=== PATIENT | female | born 1955 | race Caucasian/White ===

== ENCOUNTER → 2016-05-08 | Outpatient (CLI) | payer BC ==
--- NOTE | 2016-05-08 08:51 | Diagnostic Imaging Report ---
EXAMINATION: Right lower extremity duplex venous ultrasound. TECHNIQUE: DVT protocol. Multiple sonographic images with color Doppler and waveform interrogation were performed of the right lower extremity veins with compression and augmentation maneuvers. INDICATION: Right leg pain and lump. FINDINGS: The right lower extremity veins from the groin to below the knee veins were examined with normal color-flow, compressibility and normal waveform demonstrated. The great saphenous vein is patent. There is a 6.2 x 1.2 x 2.4 cm from Turner's cyst with mild internal debris seen in the popliteal fossa. IMPRESSION: No evidence of DVT in the right lower extremity. Turner's cyst. Dictated by: Dictated on workstation # [id number]
== END ==
LOC: RAD 08:04
PROVIDERS: ATTEND Internal Medicine
DX: M71.21 Synovial cyst of popliteal space [Baker], right knee (principal); M79.661 Pain in right lower leg

== ENCOUNTER → 2016-11-14 | Outpatient (CLI) | payer BC ==
[2016-11-14 10:47] LABS: BASOPHILS # (AUTO) 0.1 10^3/uL (0.0-0.1); BASOPHILS % (AUTO) 1 % (0-10); EOSINOPHILS # (AUTO) 0.2 10^3/uL (0.0-0.3); EOSINOPHILS % (AUTO) 2 % (0-10); LYMPHOCYTES % (AUTO) 39 % (12-44); MEAN CORPUSCULAR HEMOGLOBIN 29 PG (25-34); MEAN CORPUSCULAR HGB CONC 34 G/DL (32-36); MEAN CORPUSCULAR VOLUME 87 FL (80-99); MEAN PLATELET VOLUME 10.7 FL (7.4-10.4); MONOCYTES # (AUTO) 0.8 X 10^3 (0.0-1.0); MONOCYTES % (AUTO) 8 % (0-12); NEUTROPHILS # (AUTO) 5.1 X 10^3 (1.8-7.8); NEUTROPHILS % (AUTO) 50 % (42-75); PLATELET COUNT 267 10^3/uL (130-400); RED BLOOD COUNT 5.41 10^6/uL (4.35-5.85); RED CELL DISTRIBUTION WIDTH 15.4 % (10.0-14.5); RETICULOCYTE % 0.76 % (0.50-2.40); WHITE BLOOD COUNT 10.3 10^3/uL (4.3-11.0)
[2016-11-14 10:53] LABS: PATH WILL NEED TO REVIEW SMEAR PATH TO REVIEW
[2016-11-14 11:36] LABS: EOSINOPHILS % (MANUAL) 2 %; LYMPHOCYTES % (MANUAL) 19 %; NEUTROPHILS % (MANUAL) 55 %; REACTIVE LYMPHOCYTES 17 %
== END ==
LOC: LAB 10:21
PROVIDERS: ATTEND Internal Medicine
DX: D72.829 Elevated white blood cell count, unspecified (principal)
CPT/HCPCS: 36415; 85007; 85027; 85045

== ENCOUNTER → 2017-03-18 | Outpatient (CLI) | payer MEDICARE, OTHER ==
--- NOTE | 2017-03-18 11:04 | Diagnostic Imaging Report ---
INDICATION: Routine screening. COMPARISON: Comparison is made with prior exam from 08/23/2004. FINDINGS: Mild parenchymal density is noted bilaterally, primarily in the retroareolar regions. The intramammary lymph node in the upper-outer right breast appears stable. No spiculated mass or malignant appearing microcalcifications are seen. The axillae are unremarkable. IMPRESSION: No mammographic features suspicious for malignancy are identified. ACR BI-RADS Category 2: Benign findings. Result letter will be mailed to the patient. Note: At least 10% of breast cancer is not imaged by mammography. Dictated by: Dictated on workstation # [id number]
== END ==
LOC: RAD 08:16
PROVIDERS: ATTEND Internal Medicine
DX: Z12.31 Encounter for screening mammogram for malignant neoplasm of breast (principal)
CPT/HCPCS: 77067

== ENCOUNTER → 2018-03-19 | Outpatient (CLI) | payer MEDICARE, OTHER ==
[~2018-03-19] MED LIST: ACHD5005 PO
--- NOTE | 2018-03-19 21:19 | Diagnostic Imaging Report ---
INDICATION: Routine screening. Comparison is made with prior exam from 03/18/2017. 2-D and 3-D bilateral screening mammography was performed with a Computer Aided Detection (CAD) system. FINDINGS: Scattered fibroglandular densities are identified bilaterally. The parenchymal pattern is stable. Intraparenchymal lymph node upper outer right breast is stable. No new mass or malignant-appearing microcalcifications are seen. Axillae are unremarkable. IMPRESSION: No mammographic features suspicious for malignancy are identified. ACR BI-RADS Category 2: Benign findings. Result letter will be mailed to the patient. Note: At least 10% of breast cancer is not imaged by mammography. Dictated by: Dictated on workstation # [id number]
== END ==
LOC: RAD 10:09
PROVIDERS: ATTEND Nurse Practitioner
DX: Z12.31 Encounter for screening mammogram for malignant neoplasm of breast (principal)
CPT/HCPCS: 77067

== ENCOUNTER → 2019-01-25 | Outpatient (CLI) | payer MEDICARE, OTHER ==
--- NOTE | 2019-01-25 14:40 | Diagnostic Imaging Report ---
INDICATION: Pain COMPARISON: None available TECHNIQUE: 3 radiographs of the left foot dated 01/25/2019. FINDINGS: Moderate hallux valgus metatarsus primus varus with bunion formation. This is associated with moderate degenerative changes of the 1st MTP joint. No acute fracture or dislocation. No destructive osseous process. Additional mild scattered degenerative changes. Moderate plantar calcaneal enthesophytes. No suspicious radiopaque foreign body. IMPRESSION: No acute osseous abnormality with mild scattered degenerative changes. Hallux valgus metatarsus primus varus with bunion formation. Moderate sized plantar calcaneal enthesophyte. Dictated by: Dictated on workstation # [id number]
== END ==
LOC: RAD 11:57
PROVIDERS: ATTEND Nurse Practitioner
DX: M20.12 Hallux valgus (acquired), left foot (principal); M21.612 Bunion of left foot; M77.32 Calcaneal spur, left foot
CPT/HCPCS: 73630

== ENCOUNTER → 2019-03-22 | Outpatient (CLI) | payer MEDICARE, OTHER ==
--- NOTE | 2019-03-22 10:17 | Diagnostic Imaging Report ---
INDICATION: Routine screening. Comparison is made with prior mammograms from 03/19/2018 and 03/18/2017. 2-D and 3-D bilateral screening mammography was performed CAD. Scattered fibroglandular densities are identified bilaterally. Interpectoral lymph node upper outer right breast is stable. No new mass or malignant-appearing microcalcifications are seen. Axillae are unremarkable. IMPRESSION: BI-RADS Category 2 No mammographic features suspicious for malignancy are microcalcifications ACR BI-RADS Category 2: Benign findings. Result letter will be mailed to the patient. Note: At least 10% of breast cancer is not imaged by mammography. Dictated by: Dictated on workstation # [id number]
== END ==
LOC: RAD 07:51
PROVIDERS: ATTEND Nurse Practitioner
DX: Z12.31 Encounter for screening mammogram for malignant neoplasm of breast (principal)
CPT/HCPCS: 77067

== ENCOUNTER 2019-04-23 10:29 | Outpatient (RCR) | payer MEDICARE, OTHER | END 2019-04-23 13:00 | disposition home or self-care (01) | PROVIDERS: ATTEND Nurse Practitioner Family | DX: M50.23 Other cervical disc displacement, cervicothoracic region (principal); M19.011 Primary osteoarthritis, right shoulder ==

== ENCOUNTER 2019-07-27 11:25 | Emergency (ER) | payer MEDICARE, OTHER ==
[~2019-07-27] VITALS: Ht 157 cm; Wt 74.0 kg
[2019-07-27] MEDS: NITROGLYCERIN 0.4 MG SL TABS BTL 25'S SL PRN ×2 (11:41→11:48)
[2019-07-27 11:45] LABS: BASOPHILS # (AUTO) 0.1 10^3/uL (0.0-0.1); BASOPHILS % (AUTO) 1 % (0-10); EOSINOPHILS # (AUTO) 0.3 10^3/uL (0.0-0.3); EOSINOPHILS % (AUTO) 3 % (0-10); HEMATOCRIT 46 % (35-52); HEMOGLOBIN 15.8 G/DL (11.5-16.0); LYMPHOCYTES # (AUTO) 4.9 X 10^3 (1.0-4.0); LYMPHOCYTES % (AUTO) 43 % (12-44); MEAN CORPUSCULAR HEMOGLOBIN 29 PG (25-34); MEAN CORPUSCULAR HGB CONC 35 G/DL (32-36); MEAN CORPUSCULAR VOLUME 83 FL (80-99); MEAN PLATELET VOLUME 10.3 FL (7.4-10.4); MONOCYTES # (AUTO) 1.1 X 10^3 (0.0-1.0); MONOCYTES % (AUTO) 10 % (0-12); NEUTROPHILS % (AUTO) 44 % (42-75); PLATELET COUNT 316 10^3/uL (130-400); RED CELL DISTRIBUTION WIDTH 14.6 % (10.0-14.5); WHITE BLOOD COUNT 11.4 10^3/uL (4.3-11.0)
[2019-07-27] MEDS ORDERED: ASPIRIN 81 MG CHEW (CHILDREN'S ASA) PO ONE (11:45)
[2019-07-27] MEDS ORDERED: OMEP20CA18 (11:51)
[2019-07-27] MEDS ORDERED: METO50TA7 (11:51)
[2019-07-27] MEDS ORDERED: NAPR-915 (11:51)
--- NOTE | 2019-07-27 11:56 | ED Chest Pain ---
General Chief Complaint: Chest Pain Stated Complaint: CHEST PAIN Nursing Triage Note: Arrived via amb to room 06. On and off chest pain x2 weeks. States at times the pain radiates into her neck. Nursing Sepsis Screen: No Definite Risk Source: patient Exam Limitations: no limitations History of Present Illness Date Seen by Provider: Jul 27, 2019 Time Seen by Provider: 11:25 Initial Comments Here with report of intermittent anterior chest pressure that starts in the upper chest and radiates up into the neck. Usually associated with activity and better with rest. Has worsened today. Onset today at 9:30 AM and has persisted but better now after resting. States it's at about 5 out of 10 with respect to pressure. Denies shortness of air currently but states she doesn't short of air sometimes with these. Denies sweating, nausea or dizziness. Denies recent illness. Has not had previous heart catheter. Timing/Duration: 1-3 hours, changing over time Severity/Quality: moderate, pressure Location: central Radiation: neck Activities at Onset: none Prior CP/Workup: echocardiography Modifying Factors: improves with rest ASA po STREET INSPECTOR: No NTG SL STREET INSPECTOR: No Associated Symptoms: No abdominal pain, No back pain, No diaphoresis, No fever/chills, No nausea/vomiting, No weakness Allergies and Home Medications Allergies Uncoded Allergies: PENICILLIN (Allergy, Unknown, 10/16/17) Patient Home Medication List Home Medication List Reviewed: Yes Review of Systems Review of Systems Constitutional: see HPI EENTM: No Symptoms Reported Respiratory: See HPI, SOA With Exertion; Denies Wheezing Cardiovascular: Chest Pain; Denies Edema, Denies Irregular Heart Rate Gastrointestinal: Denies Abdominal Pain, Denies Diarrhea, Denies Nausea, Denies Vomiting Genitourinary: No Symptoms Reported Musculoskeletal: no symptoms reported Skin: no symptoms reported Psychiatric/Neurological: No Symptoms Reported All Other Systems Reviewed Negative Unless Noted: Yes Past Lpzawki-Jgfeos-Qlarfy Hx Past Med/Social Hx: Reviewed Nursing Past Med/Soc Hx Patient Social History Alcohol Use: Denies Use Recreational Drug Use: No Smoking Status: Current Everyday Smoker Type Used: Cigarettes Recent Foreign Travel: No Contact w/Someone Who Travel: No Recent Infectious Disease Expo: No Recent Hopitalizations: No Past Medical History Surgeries: Yes Tubal Ligation Respiratory: No Tuberculosis Cardiac: Yes High Cholesterol, Hypertension 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 oz. 77.272669vw; 30.00 BMI Method:Stated General Appearance: No Apparent Distress, WD/WN HEENT: PERRL/EOMI, Pharynx Normal Neck: Non Tender, Supple Respiratory: Lungs Clear, Normal Breath Sounds Cardiovascular: No Murmur, Tachycardia Gastrointestinal: Non Tender, Soft Extremity: Normal Inspection, Normal Range of Motion, Non Tender, No Calf Tenderness; No Pedal Edema Neurologic/Psychiatric: Alert, Oriented x3, No Motor/Sensory Deficits Skin: Normal Color, Warm/Dry Progress/Results/Core Measures Results/Orders Lab Results Laboratory Tests Test 07/27/19 11:35 07/27/19 13:27 Range/Units White Blood Count 11.4 H 4.3-11.0 10^3/uL Red Blood Count 5.48 4.35-5.85 10^6/uL Hemoglobin 15.8 11.5-16.0 G/DL Hematocrit 46 35-52 % Mean Corpuscular Volume 83 80-99 FL Mean Corpuscular Hemoglobin 29 25-34 PG Mean Corpuscular Hemoglobin Concent 35 32-36 G/DL Red Cell Distribution Width 14.6 H 10.0-14.5 % Platelet Count 316 130-400 10^3/uL Mean Platelet Volume 10.3 7.4-10.4 FL Neutrophils (%) (Auto) 44 42-75 % Lymphocytes (%) (Auto) 43 12-44 % Monocytes (%) (Auto) 10 0-12 % Eosinophils (%) (Auto) 3 0-10 % Basophils (%) (Auto) 1 0-10 % Neutrophils # (Auto) 5.0 1.8-7.8 X 10^3 Lymphocytes # (Auto) 4.9 H 1.0-4.0 X 10^3 Monocytes # (Auto) 1.1 H 0.0-1.0 X 10^3 Eosinophils # (Auto) 0.3 0.0-0.3 10^3/uL Basophils # (Auto) 0.1 0.0-0.1 10^3/uL Prothrombin Time 13.6 12.2-14.7 SEC INR Comment 1.0 0.8-1.4 Activated Partial Thromboplast Time 28 24-35 SEC D-Dimer <= 0.27 0.00-0.49 UG/ML Sodium Level 135 135-145 MMOL/L Potassium Level 4.3 3.6-5.0 MMOL/L Chloride Level 103 98-107 MMOL/L Carbon Dioxide Level 19 L 21-32 MMOL/L Anion Gap 13 5-14 MMOL/L Blood Urea Nitrogen 20 H 7-18 MG/DL Creatinine 0.81 0.60-1.30 MG/DL Estimat Glomerular Filtration Rate > 60 BUN/Creatinine Ratio 25 Glucose Level 79 70-105 MG/DL Calcium Level 9.3 8.5-10.1 MG/DL Corrected Calcium 9.1 8.5-10.1 MG/DL Magnesium Level 2.1 1.6-2.4 MG/DL Total Bilirubin 0.5 0.1-1.0 MG/DL Aspartate Amino Transf (AST/SGOT) 23 5-34 U/L Alanine Aminotransferase (ALT/SGPT) 16 0-55 U/L Alkaline Phosphatase 56 40-136 U/L Myoglobin 62.6 10.0-92.0 NG/ML Troponin I < 0.028 < 0.028 <0.028 NG/ML Total Protein 7.3 6.4-8.2 GM/DL Albumin 4.3 3.2-4.5 GM/DL Lipase 42 8-78 U/L My Orders Orders - JAIMIE DOSS MD Cbc With Automated Diff (07/27/19 11:33) Magnesium (07/27/19 11:33) Chest 1 View, Ap/Pa Only (07/27/19 11:33) Ekg Tracing (07/27/19 11:33) Comprehensive Metabolic Panel (07/27/19 11:33) Myoglobin Serum (07/27/19 11:33) Protime With Inr (07/27/19 11:33) Partial Thromboplastin Time (07/27/19 11:33) O2 (07/27/19 11:33) Monitor-Rhythm Ecg Trace Only (07/27/19 11:33) Lipid Panel (07/28/19 06:00) Ed Iv/Invasive Line Start (07/27/19 11:33) Lipase (07/27/19 11:33) Troponin I (07/27/19 11:33) Nitroglycerin 0.4 Mg Btl 25's (Nitrostat (07/27/19 11:45) Aspirin Chewable Tablet (Baby Aspirin Ch (07/27/19 11:45) Fibrin Degradation Products (07/27/19 11:35) Troponin I (07/27/19 13:14) Medications Given in ED Current Medications Medications Dose Ordered Sig/Fabian Route Start Time Stop Time Status Last Admin Dose Admin Aspirin 324 mg ONCE ONCE PO 07/27/19 11:45 07/27/19 11:46 DC 07/27/19 11:41 324 MG Nitroglycerin 0.4 mg UD PRN SL 07/27/19 11:45 07/27/19 11:48 0.4 MG Vital Signs/I&O 07/27/19 11:25 Temp 37.0 Pulse 99 Resp 16 B/P (MAP) 145/69 (94) Pulse Ox 96 O2 Delivery Room Air Blood Pressure Mean: 94 Progress Progress Note : Progress Note Seen and evaluated. IV, labs, EKG and chest x-ray ordered. ASA 324 mg by mouth ordered. Nitroglycerin sublingual when necessary ordered. Monitor patient. 1400: I discussed the case with Dr. Gayle. Patient is chest pain-free and able to walk around without chest pain. We will repeat her troponin and if still negative then he can set her up as outpatient nuclear stress test on . I discussed this with the patient and she thinks that's an okay plan. Monitor patient. 1501: Repeat troponin negative and patient still without chest pain and no discomfort at all. Dr. Gayle will see the patient in the emergency department and signed order for outpatient stress test. Discharged home with return precautions. Patient verbalize understanding instructions and agreement with plan. Initial ECG Impression Date: Jul 27, 2019 Initial ECG Impression Time: 11:25 Initial ECG Rate: 96 Initial ECG Rhythm: Normal Sinus Comment Sinus with rate 100. Normal axis. No evidence of ST elevation FL. Inverted T waves in lead 3 and aVF. T wave inversion in lead 3 similar to previous of 10/16/17 but not noted in leads aVF. Interpreted by me. Diagnostic Imaging Diagonstic Imaging: Xray Plain Films/CT/US/NM/MRI: chest Comments [facility] [place], [place] NAME: SINCERE SAL[facility]ON [facility] REC#: [id number] PT STATUS: REG ER : 1955 PHYSICIAN: JAIMIE DOSS MD ADMIT DATE: 07/27/19/ER Draft Date of Exam:07/27/19 CHEST 1 VIEW, AP/PA ONLY Portable erect AP chest at 12:08. Indication: Chest pain. The heart size is within normal limits and stable compared to 10/16/2017. The lungs are clear. There is no sign of failure, pneumonia or pleural effusion. The mediastinum is not widened. The osseous structures are intact. Impression: There is no evidence for active disease. Dictated on workstation # [id number] Dict: 07/27/19 1213 Trans: 07/27/19 1215 CVB [id number] Interpreted by: CLAU THACKER MD Electronically signed by: Departure Impression Primary Impression: Chest pain Qualified Codes: R07.9 - Chest pain, unspecified Disposition: 01 HOME, SELF-CARE Condition: Stable Departure-Patient Inst. Decision time for Depature: 15:06 Referrals: Guzman GAYLE MD, JOHN D MD (PCP/Family) Primary Care Physician Patient Instructions: Chest Pain (DC) Add. Discharge Instructions: All discharge instructions reviewed with patient and/or family. Voiced understanding. Return for outpatient stress test on as instructed. Return for chest pain, breathing problems, weakness, shortness of breath, dizziness, sweating or other concerns as needed. Continue home medications as previously prescribed. Copy Copies To 1: Guzman GAYLE MD Copies To 2: DANIELLE ROSALES MD, TIMOTHY D MD Jul 27, 2019 11:56
--- NOTE | 2019-07-27 12:01 | NUR ---
DENIES PAIN AFTER 2ND NITRO.
--- OUTSIDE RECORDS SUMMARY | 2019-07-27 12:04 | XMS REPORT | Continuity of Care Document ---
Author Organization Unknown Address Unknown Phone Unavailable Allergies Active Description Code Type Severity Reaction Onset Reported/Identified Relationship to Patient Clinical Status Yes PENICILLIN PENICILLIN Unknown N/A 10/16/2017 Medications There is no data. 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] 05/09/2016 DANIELLE ROSALES MD Ot M79.6 61 PAIN IN RIGHT LOWER LEG 05/28/2016 DANIELLE ROSALES MD Ot 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] 05/28/2016 DANIELLE ROSALES MD Ot M79.6 61 PAIN IN RIGHT LOWER LEG 11/20/2016 DANIELLE ROSALES MD Ot D72.8 29 ELEVATED WHITE BLOOD CELL COUNT, UNSPECI 12/04/2016 DANIELLE ROSALES MD Ot D72.8 29 ELEVATED WHITE BLOOD CELL COUNT, UNSPECI 03/18/2017 DANIELLE ROSALES MD Ot Z12.3 1 ENCNTR SCREEN MAMMOGRAM FOR MALIGNANT NE 04/09/2017 DANIELLE ROSALES MD Ot Z12.3 1 ENCNTR SCREEN MAMMOGRAM FOR MALIGNANT NE 10/16/2017 DANIELLE ROSALES MD Ot Z12.3 1 ENCNTR SCREEN MAMMOGRAM FOR MALIGNANT NE 10/16/2017 JAIMIE DOSS MD Ot E78.00 PURE HYPERCHOLESTEROLEMIA, UNSPECIFIED 10/16/2017 JAIMIE DOSS MD Ot F17.200 NICOTINE DEPENDENCE, UNSPECIFIED, UNCOMP 10/16/2017 JAIMIE DOSS MD Ot I10 ESSENTIAL (PRIMARY) HYPERTENSION 10/16/2017 JAIMIE DOSS MD Ot K21.9 GASTRO-ESOPHAGEAL REFLUX DISEASE WITHOUT 10/16/2017 JAIMIE DOSS MD Ot M06.9 RHEUMATOID ARTHRITIS, UNSPECIFIED 10/16/2017 JAIMIE DOSS MD Ot R07.89 OTHER CHEST PAIN 10/16/2017 JAIMIE DOSS MD Ot S20.212A CONTUSION OF LEFT FRONT WALL OF THORAX, 10/16/2017 JAIMIE DOSS MD Ot W18.30XA FALL ON SAME LEVEL, UNSPECIFIED, INITIAL 10/16/2017 JAIMIE DOSS MD Ot Y92.[address] 10/16/2017 JAIMIE DOSS MD Ot Y93.01 ACTIVITY, WALKING, MARCHING AND HIKING 10/16/2017 JAIMIE DOSS MD Ot Z88.0 ALLERGY STATUS TO PENICILLIN 10/16/2017 JAIMIE DOSS MD Ot Z98.51 TUBAL LIGATION STATUS 10/20/2017 JAIMIE DOSS MD Ot E78.00 PURE HYPERCHOLESTEROLEMIA, UNSPECIFIED 10/20/2017 JAIMIE DOSS MD Ot F17.200 NICOTINE DEPENDENCE, UNSPECIFIED, UNCOMP 10/20/2017 JAIMIE DOSS MD Ot I10 ESSENTIAL (PRIMARY) HYPERTENSION 10/20/2017 JAIMIE DOSS MD Ot K21.9 GASTRO-ESOPHAGEAL REFLUX DISEASE WITHOUT 10/20/2017 JAIMIE DOSS MD Ot M06.9 RHEUMATOID ARTHRITIS, UNSPECIFIED 10/20/2017 JAIMIE DOSS MD Ot R07.89 OTHER CHEST PAIN 10/20/2017 JAIMIE DOSS MD Ot S20.212A CONTUSION OF LEFT FRONT WALL OF THORAX, 10/20/2017 JAIMIE DOSS MD Ot W18.30XA FALL ON SAME LEVEL, UNSPECIFIED, INITIAL 10/20/2017 JAIMIE DOSS MD Ot Y92.[address] 10/20/2017 JAIMIE DOSS MD Ot Y93.01 ACTIVITY, WALKING, MARCHING AND HIKING 10/20/2017 JAIMIE DOSS MD Ot Z88.0 ALLERGY STATUS TO PENICILLIN 10/20/2017 JAIMIE DOSS MD Ot Z98.51 TUBAL LIGATION STATUS 04/09/2018 MATEO SPAULDING ICU REGISTERED NURSE Ot Z12.31 ENCNTR SCREEN MAMMOGRAM FOR MALIGNANT NE 01/25/2019 DANIELLE ROSALES MD Ot Z12.3 1 ENCNTR SCREEN MAMMOGRAM FOR MALIGNANT NE 01/25/2019 MATEO SPAULDING R ICU REGISTERED NURSE Ot Z12.31 ENCNTR SCREEN MAMMOGRAM FOR MALIGNANT NE 01/27/2019 CHELLY MATEO R ICU REGISTERED NURSE Ot M20.12 HALLUX VALGUS (ACQUIRED), LEFT FOOT 01/27/2019 CHELLY, MATEO R ICU REGISTERED NURSE Ot M21.612 BUNION OF LEFT FOOT 01/27/2019 CHELLY, MATEO R ICU REGISTERED NURSE Ot M77.32 CALCANEAL SPUR, LEFT FOOT 02/03/2019 CHELLY, MATEO R ICU REGISTERED NURSE Ot M20.12 HALLUX VALGUS (ACQUIRED), LEFT FOOT 02/03/2019 CHELLY, MATEO R ICU REGISTERED NURSE Ot M21.612 BUNION OF LEFT FOOT 02/03/2019 CHELLY, MATEO R ICU REGISTERED NURSE Ot M77.32 CALCANEAL SPUR, LEFT FOOT 02/19/2019 CHELLY, MATEO R ICU REGISTERED NURSE Ot M20.12 HALLUX VALGUS (ACQUIRED), LEFT FOOT 02/19/2019 CHELLY, MATEO R ICU REGISTERED NURSE Ot M21.612 BUNION OF LEFT FOOT 02/19/2019 CHELLY, MATEO R ICU REGISTERED NURSE Ot M77.32 CALCANEAL SPUR, LEFT FOOT 03/23/2019 MATEO SPAULDING ICU REGISTERED NURSE Ot Z12.31 ENCNTR SCREEN MAMMOGRAM FOR MALIGNANT NE 04/20/2019 MAICOL TOURE ICU REGISTERED NURSE Ot M19.011 PRIMARY OSTEOARTHRITIS, RIGHT SHOULDER 04/20/2019 MAICOL TOURE ICU REGISTERED NURSE Ot M50.23 OTHER CERVICAL DISC DISPLACEMENT, CERVIC 04/20/2019 MATEO SPAULDING R ICU REGISTERED NURSE Ot Z12.31 ENCNTR SCREEN MAMMOGRAM FOR MALIGNANT NE Procedures There is no data. Results Test Result Range Blood CBC with ordered manual differenti al panel - 11/14/16 10:37 Blood leukocytes automated count (number/volume) 10.3 10*3/uL 4.3-11.0 Blood erythrocytes automated count (number/volume) 5.41 10*6/uL 4.35-5.85 Venous blood hemoglobin measurement (mass/volume) 15.7 g/dL 11.5-16.0 Blood hematocrit (volume fraction) 47 % 35-52 Automated erythrocyte mean corpuscular volume 87 [ foz_us] 80-99 Automated erythrocyte mean corpuscular h emoglobin (mass per erythrocyte) 29 pg 25-34 Automated erythrocyte mean corpuscular h emoglobin concentration measurement (mass/volume) 34 g/dL 32-36 Automated erythrocyte distribution width ratio 15. 4 % 10.0- 14.5 Automated blood platelet count (count/volume) 267 10*3/uL 130-400 Automated blood platelet mean volume measurement 10.7 [foz_us] 7.4-10.4 Automated blood neutrophils/100 leukocytes 50 % 42-75 Automated blood lymphocytes/100 leukocytes 39 % 12-44 Blood monocytes/100 leukocytes 7 % NRG Automated blood eosinophils/100 leukocytes 2 % 0-10 Automated blood basophils/100 leukocytes 1 % 0-10 Blood neutrophils automated count (number/volume) 5.1 10*3 1.8-7.8 Blood lymphocytes automated count (number/volume) 4.0 10*3 1.0-4.0 Blood monocytes automated count (number/volume) 0. 8 10*3 0.0-1.0 Automated eosinophil count 0.2 10*3/uL 0 .0-0.3 Automated blood basophil count (count/volume) 0.1 10*3/uL 0.0-0.1 Manual blood segmented neutrophils/100 leukocytes 55 % NRG Manual blood lymphocytes/100 leukocytes 19 % NRG Manual eosinophils/100 leukocytes in nose 2 % NRG Blood lymphocytes variant/100 leukocytes 17 % NRG Blood erythrocyte morphology finding identification NORMAL NRG Automated reticulocyte percentage - 10/26 03/12 10:37 Blood reticulocytes count (number/volume) 41 10*9/ L 24-90 Blood reticulocytes/100 erythrocytes 0.76 % 0.50-2.40 Complete blood count (CBC) with automate d white blood cell (WBC) differential - 07/27/19 11:35 Blood leukocytes automated count (number/volume) 11.4 10*3/uL 4.3-11.0 Blood erythrocytes automated count (number/volume) 5.48 10*6/uL 4.35-5.85 Venous blood hemoglobin measurement (mass/volume) 15.8 g/dL 11.5-16.0 Blood hematocrit (volume fraction) 46 % 35-52 Automated erythrocyte mean corpuscular volume 83 [ foz_us] 80-99 Automated erythrocyte mean corpuscular h emoglobin (mass per erythrocyte) 29 pg 25-34 Automated erythrocyte mean corpuscular h emoglobin concentration measurement (mass/volume) 35 g/dL 32-36 Automated erythrocyte distribution width ratio 14. 6 % 10.0- 14.5 Automated blood platelet count (count/volume) 316 10*3/uL 130-400 Automated blood platelet mean volume measurement 10.3 [foz_us] 7.4-10.4 Automated blood neutrophils/100 leukocytes 44 % 42-75 Automated blood lymphocytes/100 leukocytes 43 % 12-44 Blood monocytes/100 leukocytes 10 % 0-12 Automated blood eosinophils/100 leukocytes 3 % 0-10 Automated blood basophils/100 leukocytes 1 % 0-10 Blood neutrophils automated count (number/volume) 5.0 10*3 1.8-7.8 Blood lymphocytes automated count (number/volume) 4.9 10*3 1.0-4.0 Blood monocytes automated count (number/volume) 1. 1 10*3 0.0-1.0 Automated eosinophil count 0.3 10*3/uL 0 .0-0.3 Automated blood basophil count (count/volume) 0.1 10*3/uL 0.0-0.1 Encounters ACCT No. Visit Date/Time Discharge Status Pt. Type Provider Facility Loc./Unit Complaint [id number] 04/23/2019 10:29:00 13:00:00 DIS Outpatient MAICOL TOURE APRN [facility] REHAB RC ARTHROPLSTY R SHOULD ER; DDD C6-7 [id number] 03/22/2019 07:51:00 23:59:59 CLS Outpatient MATEO SPAULDING APRN [facility] RAD SCREENING [id number] 01/25/2019 11:57:00 23:59:59 CLS Outpatient MATEO SPAULDING APRN [facility] RAD LEFT FOOT PAIN [id number] 03/19/2018 10:09:00 019 23:59:59 CLS Outpatient MATEO SPAULDING APRN [facility] RAD SCREENING [id number] 10/16/2017 07:51:00 018 11:55:00 DIS Emergency JAIMIE DOSS MD [facility] ER CP [id number] 03/18/2017 08:16:00 018 23:59:59 CLS Outpatient DANIELLE ROSALES MD [facility] RAD SCREENING [id number] 11/14/2016 10:21:00 017 23:59:59 CLS Outpatient DANIELLE ROSALES MD [facility] LAB WHITE COUNT ELEVATED [id number] 05/08/2016 08:04:00 017 23:59:59 CLS Outpatient DANIELLE ROSALES MD [facility] RAD PAIN RT POSTERIOR KNEE [id number] 07/27/2019 11:46:00 Document Registration [id number] 12/15/2009 08:55:00 Document Registration [id number] 11/23/2009 17:36:00 Document Registration
--- OUTSIDE RECORDS SUMMARY | 2019-07-27 12:04 | XMS REPORT ---
Author Author [facility] [employer] [employer] Address [address] [address] Care Team Providers Care Research Dietitian Name Role Phone DANIELLE ROSALES Unavailable DANIELLE ROSALES MD Unavailable Unavailable MATEO SPAULDING APRN Unavailable Unavailable DANIELLE ROSALES MD Unavailable Unavailable JAIMIE DOSS MD Unavailable Unavailable MATEO SPAULDING APRN Unavailable Unavailable MESFIN ROJAS MAICOL [place] Unavailable Unavailable Unavailable Unavailable Unavailable Unavailable Allergies Normalized Allergy Reported Date of Reaction(s) Care Provider Facility Allergy Type classification allergen Allergy Onset Drug Allergy Penicillins penicillin 12-15-2009 - no information DANIELLE ROSALES , Not Available (22 sources.) (antibiotic) () Medications Medication Ingredient Drug Dose Dates Status Sig Sig Care Class(es) (Normalized) (Original) Provid er no acetaminoph Opioid 10-17-19 Complete take 1-2 Acetaminoph e Timoth information en / Agonist 18 d tablets by n/Hydrocodon y D (1 source.) HYDROcodone mouth every e Bitart Stebbi six hours as (Hydrocodone ns (no needed for /Acetaminoph phone) pain en 5/325MG Tablet) 1 Tab Tab 1-2 Each ORAL Every 6 Hours as needed for Pain-Moderat e 18 Tab 10/16/17 Problems Active Problems Problem Normalized Date Last Normalized Normalized Provider Fa cility Classification Problem(s) Recorded Problem Problem Sta tus Duration External cause Activity, Episodic Active JA[facility]IE [facility] Via codes: walking, MD Marlene DOSS Unspecified (1 and Hospital - source.) [facility] () Allergic Allergy status Episodic Active JAIMIE [facility] Via reactions (3 to penicillin MD ROMARIO Marlene sources.) [facility] () Acquired foot Bunion of left Episodic Active MATEO SPAULDING [facility] Via deformities (3 foot Marlene sources.) [facility] (76266) Other Calcaneal Episodic Active MATEO CHELLY [facility] Via connective spur, left Marlene tissue disease foot Hospital - (3 sources.) [place] () Superficial Contusion of Episodic Active JAIMIE [facility] Via injury; left front MD Marlene DOSS contusion (3 wall of Hospital - sources.) thorax, [place] initial () encounter Diseases of Elevated white Chronic Active no name no in formation white blood blood cell cells (2 count, sources.) unspecified Other Encounter for Episodic Active DANIELLE ROSALES [facility] Via screening for screening MD Rosario suspected mammogram for Hospital - conditions malignant [place] (not mental neoplasm of (94575) disorders or breast infectious disease) (12 sources.) Essential Essential Chronic Active JAIMIE [facility] Via hypertension (primary) MD Marlene DOSS (3 sources.) hypertension [facility] (08302) External cause Fall on same Episodic Active JAIMIE [facility] Via codes: Fall (1 level, MD Marlene DOSS source.) unspecified, Hospital - initial [place] encounter () Esophageal Gastro-esophag Chronic Active JAIMIE [facility] Vi a disorders (3 eal reflux MD Marlene DOSS sources.) disease Hospital - without [place] esophagitis (39428) Acquired foot Hallux valgus Chronic Active MATEO CHELLY [facility] Via deformities (3 (acquired), Marlene sources.) left foot Hospital - [place] ([address]654) Substance-rela Nicotine Chronic Active JAIMIE [facility] Via aretha disorders dependence, MD Marlene DOSS (3 sources.) unspecified, Hospital - uncomplicated [place] (90646) Spondylosis; Other cervical Chronic Active MAICOL MESFIN , [facility] Via intervertebral disc CRYSTAL Rosario disc displacement, Hospital - disorders; cervicothoraci [place] other back c region () problems (17 sources.) Nonspecific Other chest Episodic Active JAIMIE [facility] Via chest pain (4 pain MD Marlene DOSS sources.) Hospital - [place] (10552) Osteoarthritis Primary Chronic Active MAICOL MESFIN , [facility] Via (17 sources.) osteoarthritis CRYSTAL Rosario , right Hospital - shoulder [place] () Disorders of Pure Chronic Active JAIMIE [facility] Via lipid hypercholester MD Marlene DOSS metabolism (1 olemia, Hospital - source.) unspecified [place] () Rheumatoid Rheumatoid Chronic Active JAIMIE [facility] Via arthritis and arthritis, MD Marlene DOSS related unspecified Hospital - disease (3 [place] sources.) (23991) Contraceptive Tubal ligation Episodic Active JAIMIE [facility] Via and status MD Marlene DOSS procreative Hospital - management (3 [place] sources.) (58898) External cause Unspecified Episodic Active JAIMIE [facility] V ia codes: Place street and MD Marlene DOSS of occurrence highway as the Hospital - (1 source.) place of [place] occurrence of (00158) the external cause Past or Other Problems Problem Normalized Date Last Normalized Normalized Provider Fa cility Classification Problem(s) Recorded Problem Problem Sta tus Duration External Activity, no information no information no name No t Available Injury - walking, (29545) Unspecified (2 marching and sources.) hiking External Fall on same no information no information no name Not Available Injury - Fall level, (90761) (2 sources.) unspecified, initial encounter Other Pain in right Episodic Completed DANIELLE ROSALES , Not Available connective lower leg (67328) tissue disease (3 sources.) Unclassified Pure no information no information no name Not Available (2 sources.) hypercholester (63841) olemia, unspecified Other Synovial cyst Episodic Completed DANIELLE ROSALES , Not Available connective of popliteal (19985) tissue disease space [[place]], (3 sources.) right knee External Unspecified no information no information no name Not Available Injury - Place street and (89710) of occurrence highway as the (2 sources.) place of occurrence of the external cause Procedures Procedure Normalized Procedure Procedure Result Performer Facility Date 10-16-2017 Computerized axial no information JAIMIE REY S Via [facility] tomography of thorax [place] (53726) with contrast 10-16-2017 Electrocardiographic no information JAIMIE FUENTES INS Via [facility] procedure [place] (57413) 10-16-2017 Plain chest X-ray no information JAIMIE DOSS Via [facility] ([address]) Immunizations Normalized Immunization Date Notes Care Provider Facili ty Immunization vaccine no information DANIELLE ROSALES [id number] [address] [facility] Translations: [ [place] ([address]) vaccine] Results Test Name Value Interpretation Reference Range Date Time Fa cility (Normalized) (Normalized) (Medline Reference) venous blood hemoglobin measurement (mass/volume) on 2017-10-16 Hemoglobin mass 15.5 g/dL (no code) 12.1 - 17.2 g/dL Via [facility] (d) [facility] (81176) serum or plasma urea nitrogen/creatin ine mass ratio on 2017-10-16 Urea 20 mg/mg (no code) 6 - 22 mg/mg Via [facility] nitrogen/Creatin Hospital ine mass ratio [place] (67898) serum or plasma urea nitrogen measurement (mass/volume) on 2017-10-16 Urea nitrogen 16 mg/dL (no code) 7 - 20 mg/dL Via [facility] (32801) serum or plasma troponin i.cardiac measurement (mass/volume) on 2017-10-16 Troponin no information (no code) [facility] () Troponin no information (no code) [facility] (33628) serum or plasma total bilirubin measurement (mass/volume) on 2017-10-16 Bilirubin mass 0.4 mg/dL (no code) 0.1 - 1.2 mg/dL Via [facility] (46200) serum or plasma sodium measurement (moles/volume) on 2017-10-16 Sodium molar 141 mmol/L (no code) 135 - 145 mmol/L Via [facility] (99052) serum or plasma protein measurement (mass/volume) on 2017-10-16 Protein mass 7.0 g/dL (no code) 6.4 - 8.3 g/dL Via [facility] (79059) serum or plasma potassium measurement (moles/volume) on 2017-10-16 Potassium molar 4.3 mmol/L (no code) 3.7 - 5.2 mmol/L Via [facility] (22250) serum or plasma glucose measurement (mass/volume) on 2017-10-16 Glucose mass 117 mg/dL (H) 60 - 125 mg/dL Via [facility] (35604) serum or plasma creatinine measurement with calculation of estimated glomerular filtration rate on 2017-10-16 GFR/1.73 sq M no information (no code) Via [facility] non[facility] vol rate/area (25439) (S/P/Bld) serum or plasma creatinine measurement (mass/volume) on 2017-10-16 Creatinine mass 0.80 mg/dL (no code) Via [facility] (98901) serum or plasma chloride measurement (moles/volume) on 2017-10-16 Chloride molar 108 mmol/L (H) 95 - 106 mmol/L Via [facility] (96953) serum or plasma calcium measurement (mass/volume) on 2017-10-16 Calcium mass 9.3 mg/dL (no code) 8.5 - 10.2 mg/dL Via [facility] (43471) serum or plasma aspartate aminotransferase measurement (enzymatic activity/volume) on 2017-10-16 AST enzyme 16 U/L (no code) 10 - 34 U/L Via [facility] (60635) serum or plasma anion gap determination (moles/volume) on 2017-10-16 Anion gap 3 9 mmol/L (no code) 3 - 11 mmol/L Via [facility] (71772) serum or plasma alkaline phosphatase measurement (enzymatic activity/volume) on 2017-10-16 ALP enzyme 68 U/L (no code) 44 - 147 U/L Via [facility] (93953) serum or plasma albumin measurement (mass/volume) on 2017-10-16 Albumin mass 4.2 g/dL (no code) 3.4 - 5.4 g/dL Via [facility] (33674) serum or plasma alanine aminotransferase measurement (enzymatic activity/volume) on 2017-10-16 ALT enzyme 16 U/L (no code) 4 - 40 U/L Via [facility] (29064) prothrombin time (pt) in platelet poor plasma by coagulation assay on 2017-10-16 Prothrombin time 13.1 s (no code) 9.4 - 12.5 s Via [facility] (PT) [facility] [place] (03982) myoglobin, serum on 2017-10-16 Myoglobin mass 34.3 ng/mL (no code) Via [facility] (16804) magnesium on 2017-10-16 Magnesium mass 2.3 mg/dL (no code) 1.7 - 2.2 mg/dL Via [facility] (87278) lipase on 2017-10-16 Lipase enzyme 47 U/L (no code) 10 - 73 U/L Via [facility] act/vol [facility] (66831) inr in platelet poor plasma or blood by coagulation assay on 2017-10-16 INR Coag RelTime 1.0 (no code) Via [facility] (Platelet poor Hospital plasma or blood) [place] (32411) carbon dioxide on 2017-10-16 CO2 molar conc 24 mmol/L (no code) 23 - 29 mmol/L Via [facility] (19354) calcium measurement corrected for albumin on 2017-10-16 Calcium mass 9.1 mg/dL (no code) 8.5 - 10.2 mg/dL Via [facility] conc [facility] (79775) blood neutrophils automated count (number/volume) on 2017-10-16 Neutrophils Auto 6.7 10*3/uL (no code) 1.7 - 7 10*3/uL Via [facility] #/vol (Bld) [facility] (51012) blood monocytes/100 leukocytes on 2017-10-16 Monocytes/100 10 % (no code) 2 - 8 % Via [facility] WBC Auto (Bld) [facility] (18309) blood monocytes automated count (number/volume) on 2017-10-16 Monocytes Auto 1.2 10*3/uL (H) 0.3 - 0.9 Via [facility] #/vol (Bld) 10*3/uL [facility] (56534) blood lymphocytes automated count (number/volume) on 2017-10-16 Lymphocytes Auto 3.9 10*3/uL (no code) 0.9 - 2.9 Via [facility] james #/vol (Bld) 10*3/uL [facility] (95676) blood leukocytes automated count (number/volume) on 2017-10-16 WBC Auto #/vol 12.2 10*3/uL (H) 3.5 - 10.5 Via [facility] i (Bld) 10*3/uL [facility] (29742) blood hematocrit (volume fraction) on 2017-10-16 Hematocrit Auto 45 % (no code) 36.1 - 50.3 % Via [facility] ([facility]) [place] (62409) blood erythrocytes automated count (number/volume) on 2017-10-16 RBC Auto #/vol 5.19 10*6/uL (no code) 4.2 - 6.1 Via Manohar i (Bld) 10*6/uL [facility] (74888) automated erythrocyte mean corpuscular volume on 2017-10-16 MCV Auto Entitic 87 fL (no code) 80 - 100 fL Via Chri sti volume (RBC) [facility] (04901) automated erythrocyte mean corpuscular hemoglobin concentration measurement (mass/volume) on 2017-10-16 MCHC Auto mass 35 g/dL (no code) 32 - 36 g/dL Via Juan ti conc (RBC) [facility] (25302) automated erythrocyte mean corpuscular hemoglobin (mass per erythrocyte) on 2017-10-16 MCH Auto Entitic 30 pg (no code) 27 - 31 pg Via Juan ti mass (RBC) [facility] (69435) automated erythrocyte distribution width ratio on 2017-10-16 Erythrocyte 15.8 % (H) 11.6 - 14.6 % Via Marlene distribution Hospital width Auto Ratio [place] (RBC) (53916) automated eosinophil count on 2017-10-16 Eosinophils Auto 0.3 10*3/uL (no code) 0.05 - 0.5 Via Juan ti #/vol (Bld) 10*3/uL [facility] (27035) automated blood platelet mean volume measurement on 2017-10-16 Platelet mean 10.7 fL (H) 7.2 - 11.7 fL Via Juan ti volume Auto Hospital Entitic volume [place] (Bld) (06299) automated blood platelet count (count/volume) on 2017-10-16 Platelets Auto 305 10*3/uL (no code) 150 - 450 Via Marlene #/vol (Bld) 10*3/uL [facility] (13268) automated blood neutrophils/100 leukocytes on 2017-10-16 Neutrophils/100 55 % (no code) 40 - 60 % Via Manohar i WBC Auto (Bld) [facility] (20004) automated blood lymphocytes/100 leukocytes on 2017-10-16 Lymphocytes/100 32 % (no code) 20 - 40 % Via Manohar i WBC Auto (Bld) [facility] (13232) automated blood eosinophils/100 leukocytes on 2017-10-16 Eosinophils/100 3 % (no code) 1 - 4 % Via Manohar i WBC Auto (Bld) [facility] (18215) automated blood basophils/100 leukocytes on 2017-10-16 Basophils/100 0 % (no code) 0.5 - 1 % Via [facility] WBC Auto ([facility]) [facility] (02257) automated blood basophil count (count/volume) on 2017-10-16 Basophils Auto 0.1 10*3/uL (no code) 0 - 0.3 10*3/uL Via Ch risti #/vol ([facility]) [facility] (91990) activated partial thromboplastin time (aptt) in platelet poor plasma bycoagulation assay on 2017-10-16 aPTT Coag time 28 s (no code) 25 - 35 s Via [facility] ([facility]) [facility] (26986) Vital Signs The data below is from unstructured sources Vital Response Date/Time Temperature (Fahrenheit) 97.8 degree s F (97.6 - 99.5) 10/16/2017 7:50am Temperature (Calculated Celsius) 36. 83645 degrees C (36.4 - 37.5) 10/16/2017 7:50am Temperature Source Tympanic 10/16/2017 7:50am Pulse Rate (adult) 85 bpm (60 - 90) 10/16/2017 7:50am O2 Sat by Pulse Oximetry 97 % (88 - 100) 10/16/2017 7:50am Blood Pressure 156/81 mm Hg 10/16/2017 7:50am Blood Pressure Mean 106 mm Hg (65 - 110) 10/16/2017 7:50am Pain Numeric Pain Scale 4 11:35am Height (Feet) 5 feet 7:50am Height (Inches) 2.00 inches 10/16/2017 7:50am Height (Calculated Centimeters) 157. 286825 cm 10/16/2017 7:50am Height Method Stated 7:50am Weight (Pounds) 170 pounds 10/16/2017 7:50am Weight (Calculated Grams) 79263.70 gm 10/16/2017 7:50am Weight (Calculated Kilograms) 77.110 704 kilograms 10/16/2017 7:50am Weight Method Stated 7:50am Capillary Refill Capillary Refill Less Than 3 Seconds 10/16/2017 7:50am Height 5 ft 2 in 018 7:50am Weight 170 lb 10/16/2017 7:50am Body Mass Index 31.1 kg/m^2 10/16/2017 7:50am Interventions No Information Plan of Treatment The data below is from unstructured sources Discharge Date 10/16/17 11:55am Disposition 01 HOME, SELF-CARE Condition at Discharge Improved Instructions/Education Provided RIB CONTUSION Chest Pain (DC) Prescriptions See Medication Section Referrals SAMIRA CARMICHAEL MD FACP FACC CC DS Address: [facility] Ady SLATER, [facility] [place] [address] [place] [address] Guzman JONAS MD Address: [address] [place] [address] NOEMI TAVARES MD Address: [address] [place] [phone] DANIELLE ROSALES MD Order Date: Primary Care Physician Address: [address] [place] [address] Note: DANIELLE ROSALES MD Order Date: Primary Care Physician Address: [address] [place] [address] Note: Additional Instructions/Education Al l discharge instructions reviewed with patient and/or family. Voiced understanding. Use incentive spirometer several times daily and up to several times an hour while awake. This will help prevent pneumonia. Take medications as prescribed. If you're not taking the prescribed pain medicine, you may take Tylenol/acetaminophen 1 or 2 extra strength tablets every 8 hours as needed for pain. Do not take with the prescribed pain medicine as they both have acetaminophen in them. Follow-up with your Dr. in a few days for recheck. You should set up cardiology follow-up. You can do this through your doctor or called directly to one of the operations clerk listed. Return for worse pain, fever, vomiting, weakness, breathing problems, sweating or other concerns as needed. Goals No Information Social History Normalized Code Original Code Date Value no information no information no information Smokes tobacco daily (finding) Functional Status The data below is from unstructured sourcesNo functional status information available. Mental Status No Information Encounters Encounter Normalized Encounter Encounter Diagnosis Care Provi carmencita Organization Date Type 10-16-2017 Emergency department no information JAIMIE FUENTES INS no organization name - patient visit Work Phone: 10-16-2017 10-16-2017 Emergency department no information no name no organization name - patient visit 10-16-2017 10-16-2017 Patient encounter no information no name no or ganization name 03-18-2017 Patient encounter no information no name no or ganization name NEGATED Patient encounter no information no name no or ganization name 11-14-2016 04-23-2019 Patient encounter no information MAICOL E MESFIN [employer]PUTER SYSTEM[employer] ARCHITECT (no [facility] Via [facility] - procedure phone) [facility] 04-23-2019 (no phone) 04-21-2019 Patient encounter no information MAICOL E MESFIN COMPUTER SYSTEMS ARCHITECT (no [facility] Via [facility] procedure phone) [facility] (no phone) 04-19-2019 Patient encounter no information MAICOL E MESFIN COMPUTER SYSTEMS ARCHITECT (no [facility] Via [facility] procedure phone) [facility] (no phone) 04-16-2019 Patient encounter no information MAICOL E MESFIN COMPUTER SYSTEMS ARCHITECT (no [facility] Via [facility] procedure phone) [facility] (no phone) 04-14-2019 Patient encounter no information MAICOL E MESFIN COMPUTER SYSTEMS ARCHITECT (no [facility] Via [place] procedure phone) [facility] (no phone) 04-08-2019 Patient encounter no information MAICOL E MESFIN COMPUTER SYSTEMS ARCHITECT (no [facility] Via [place] procedure phone) [facility] (no phone) 04-06-2019 Patient encounter no information MAICOL E MESFIN COMPUTER SYSTEMS ARCHITECT (no [facility] Via [facility] procedure phone) [facility] (no phone) 04-02-2019 Patient encounter no information MAICOL E MESFIN COMPUTER SYSTEMS ARCHITECT (no [facility] Via [facility] procedure phone) [facility] (no phone) 03-31-2019 Patient encounter no information no name no or ganization name procedure 03-29-2019 Patient encounter no information no name no or ganization name procedure 03-26-2019 Patient encounter no information no name no or ganization name procedure 03-25-2019 Patient encounter no information no name no or ganization name procedure 03-23-2019 Patient encounter no information no name no or ganization name procedure 03-22-2019 Patient encounter no information MATEO ANGELES RN [facility] procedure (no phone) [facility] (no phone) 03-19-2019 Patient encounter no information no name no or ganization name procedure 03-15-2019 Patient encounter no information no name no or ganization name procedure 03-12-2019 Patient encounter no information no name no or ganization name procedure 03-10-2019 Patient encounter no information no name no or ganization name procedure 01-25-2019 Patient encounter no information no name no or ganization name procedure 03-19-2018 Patient encounter no information no name no or ganization name procedure 03-19-2018 Patient encounter no information no name no or ganization name procedure 03-18-2017 Patient encounter no information no name no or ganization name procedure 05-08-2016 Patient encounter no information no name no or ganization name procedure Medical Equipment No Information Payers Normalized Payer Value Private Health Insurance [id number]) Medicare [id number]) Advance Directives Directive Response Recor ded Date/Time Advance Directives No 7:50am Resuscitation Status Full Code 10/16/17 7:50am Discharge Instructions No hospital discharge instruction information available. Additional Source Comments This clinical document has been generated using [employer] software that has been certified by the Office of the National Coordinator for Health Information Technology (ONC 15.99.04.3023.Diam.31.00.0.908583) and the National Committee for Ux Interaction Designer (NCQA, as an eMeasure certified technology). FOR RECORDS PERTAINING TO PATIENTS WHO ARE OR HAVE BEEN ENROLLED IN A CHEMICAL D EPENDENCY/SUBSTANCE ABUSE PROGRAM, SOME INFORMATION MAY BE OMITTED. This clinica l summary was aggregated from multiple sources. Caution should be exercised in using it in the provision of clinical care. This summary normalizes information from multiple sources, and as a consequence, information in this document may ma terially change the coding, format and clinical context of patient data. In beulah tion, data may be omitted in some cases. CLINICAL DECISIONS SHOULD BE BASED ON T HE PRIMARY CLINICAL RECORDS. [employer] provides no warranty or guara ntee of the accuracy or completeness of information in this document.The followi ng information is based on time limited clinical information
--- NOTE | 2019-07-27 12:15 | Diagnostic Imaging Report ---
Portable erect AP chest at 12:08. Indication: Chest pain. The heart size is within normal limits and stable compared to 10/16/2017. The lungs are clear. There is no sign of failure, pneumonia or pleural effusion. The mediastinum is not widened. The osseous structures are intact. Impression: There is no evidence for active disease. Dictated by: Dictated on workstation # [id number]
[2019-07-27 12:21] LABS: FIBRIN DEGRADATION PRODUCTS <= 0.27 UG/ML (0.00-0.49); PARTIAL THROMBOPLASTIN TIME 28 SEC (24-35); PROTHROMBIN TIME PATIENT 13.6 SEC (12.2-14.7)
[2019-07-27 12:39] LABS: ALBUMIN 4.3 GM/DL (3.2-4.5); CHLORIDE 103 MMOL/L (98-107); POTASSIUM 4.3 MMOL/L (3.6-5.0); SODIUM 135 MMOL/L (135-145)
[2019-07-27 12:40] LABS: CALCIUM 9.3 MG/DL (8.5-10.1)
[2019-07-27 12:41] LABS: GLUCOSE 79 MG/DL (70-105)
[2019-07-27 12:42] LABS: TOTAL PROTEIN 7.3 GM/DL (6.4-8.2)
[2019-07-27 12:43] LABS: BILIRUBIN,TOTAL 0.5 MG/DL (0.1-1.0); CARBON DIOXIDE 19 MMOL/L (21-32)
[2019-07-27 12:45] LABS: ALKALINE PHOSPHATASE 56 U/L (40-136); CREATININE SERUM 0.81 MG/DL (0.60-1.30); GFR ESTIMATED > 60
[2019-07-27 12:46] LABS: BUN/CREATININE RATIO 25
[2019-07-27 12:48] LABS: ALANINE AMINOTRANSFERASE 16 U/L (0-55); MAGNESIUM 2.1 MG/DL (1.6-2.4)
[2019-07-27 12:49] LABS: LIPASE 42 U/L (8-78)
--- NOTE | 2019-07-27 12:50 | NUR ---
RESTING IN BED ET DENIES NEEDS AT THIS TIME.
--- NOTE | 2019-07-27 13:10 | NUR ---
IN TALKING TO THE PT AT THIS TIME.
--- NOTE | 2019-07-27 13:43 | NUR ---
PT REPORTS NO CHEST PAIN AFTER WALKING
--- NOTE | 2019-07-27 15:58 | NUR ---
DR STEPHENSON HERE TO SEE PT.
[2019-07-27 16:02] VITALS: BP 111/59
--- NOTE | 2019-07-27 16:08 | Consultation-Cardiology ---
HPI-Cardiology Cardiology Consultation: Date of Consultation 07/27/19 Date of Admission Attending Physician Admitting Physician Milton Blount MD Consulting Physician Guzman GAYLE MD HPI: Time Seen by a Provider: 16:08 Chief Complaint: chest pain This is a 64-year-old lady who presents with episode of chest pain in the upper chest radiating to the neck. Worse with exertion, better with rest. Moderate intensity, 5/10. Qualities tightness. Occasional shortness of breath. No other complaints. She is an active smoker with family history of CAD. Review of Systems-Cardiology Review of Systems Constitutional: As described under HPI; No As described under HPI, No no symptoms reported, No chills, No fever, No lightheadedness Eyes: No As described under HPI, No no symptoms reported, No blindness, No blurred vision, No contact lenses, No drainage, No decreased acuity, No foreign body sensation, No pain, No vision change Ears/Nose/Throat: No As described under HPI, No no symptoms reported, No chronic hearing loss, No ear discharge, No ear pain, No nasal drainage, No ulcerations Respiratory: No no symptoms reported; As described under HPI; No As described under HPI, No cough, No orthopnea, No shortness of breath, No SOB with excertion Cardiovascular: No no symptoms reported; As described under HPI; No As described under HPI; chest pain; No edema, No irregular heart rate, No lightheadedness, No palpitations Gastrointestinal: No no symptoms reported, No As described under HPI, No abdomen distended, No abdominal pain, No blood streaked bowels, No constipation, No diarrhea, No nausea, No vomiting, No stool coloration changes Genitourinary: No As described under HPI, No burning, No dysuria, No discharge, No frequency, No flank pain, No hematuria, No urgency : Yes : No Skin: No rash, No skin related problems, No ulcerations Psychiatric/Neurological: No anxiety, No depression, No seizure, No focal weakness, No syncope Hematologic: No bleeding abnormalities All Other Systems Reviewed Negative Unless Noted: Yes WIV-Kguohg-Vezglv Hx Patient Social History Alcohol Use: Denies Use Recreational Drug Use: No Smoking Status: Current Everyday Smoker Type Used: Cigarettes Recent Foreign Travel: No Recent Infectious Disease Expo: No Past Medical History PMH As described under Assessment. Allergies and Home Medications Allergies Uncoded Allergies: PENICILLIN (Allergy, Unknown, 10/16/17) Patient Home Medication List Home Medication List Reviewed: Yes Physical Exam-Cardiology Physical Exam Vital Signs/I&O Capillary Refill : Less Than 3 Seconds Constitutional: appears stated age, AAO x 3; No apparent distress; well- developed, well-nourished HEENT: PERRL; No discharge; hearing is well preserved, oral hygience is good; No ulceration, No xanthelasmas are seen Neck: No carotid bruit; carotid pulses are 2 + bilaterally Respiratory: chest is bilaterally symmetric, lungs clear to auscultation; No wheezing, No pleural rub Cardiovascular: regular rate-rhythm, S1 and S2; No diastolic murmur, No systolic murmur Gastrointestinal: soft, audible bowel sounds; No spleenomegaly Rectal: deferred Extremities: normal range of motion, non-tender, normal inspection; No clubbing, No cyanosis; no lower extremity edema bilateral; No significant edema Neurologic/Psychiatric: no motor/sensory deficits, alert, normal mood/affect, oriented x 3, power is 5/5 both on sides Skin: normal color, warm/dry; No rash, No ulcerations Data Review Labs Laboratory Tests 07/27/19 11:35: White Blood Count 11.4H, Red Blood Count 5.48, Hemoglobin 15.8, Hematocrit 46, Mean Corpuscular Volume 83, Mean Corpuscular Hemoglobin 29, Mean Corpuscular Hemoglobin Concent 35, Red Cell Distribution Width 14.6H, Platelet Count 316, Mean Platelet Volume 10.3, Neutrophils (%) (Auto) 44, Lymphocytes (%) (Auto) 43, Monocytes (%) (Auto) 10, Eosinophils (%) (Auto) 3, Basophils (%) (Auto) 1, Neutrophils # (Auto) 5.0, Lymphocytes # (Auto) 4.9H, Monocytes # (Auto) 1.1H, Eosinophils # (Auto) 0.3, Basophils # (Auto) 0.1, Prothrombin Time 13.6, INR Comment 1.0, Activated Partial Thromboplast Time 28, D-Dimer <= 0.27, Sodium Level 135, Potassium Level 4.3, Chloride Level 103, Carbon Dioxide Level 19L, Anion Gap 13, Blood Urea Nitrogen 20H, Creatinine 0.81, Estimat Glomerular Filtration Rate > 60, BUN/Creatinine Ratio 25, Glucose Level 79, Calcium Level 9.3, Corrected Calcium 9.1, Magnesium Level 2.1, Total Bilirubin 0.5, Aspartate Amino Transf (AST/SGOT) 23, Alanine Aminotransferase (ALT/SGPT) 16, Alkaline Phosphatase 56, Myoglobin 62.6, Troponin I < 0.028, Total Protein 7.3, Albumin 4.3, Lipase 42 07/27/19 13:27: Troponin I < 0.028 ECG Impression ECG Initial ECG Rhythm: Normal Sinus Comment possible q waves in the inferior leads A/P-Cardiology Assessment/Admission Diagnosis Prolonged chest pain, Hypertension, Active smoking, Q waves on EKG. Plan Prolonged chest pain, 2 sets of troponin negative. EKG does not show any acute ST-T wave abnormalities does show Q waves. Continue aspirin. Nuclear stress test and echocardiogram is recommended. Hypertension, stable. Continue outpatient medical therapy. Active smoking, smoking cessation was strongly recommended. Q waves on EKG. I will recommend an echocardiogram to evaluate for regional wall motion abnormalities as well as nuclear stress testing. Discussed at length with Dr. Olsen as well as the patient. Thank you for your consultation. Please call me if you have any questions. Stew Gayle MD, FACP, FACC, FSCAI, FHRS, CCDS Interventional Cardiology Cardiac Electrophysiology Vascular Medicine and Endovascular Interventions Clinical Quality Measures AMI/AHF: ASA po Prior to arrival: Guzman Wadsworth MD Jul 27, 2019 16:08
== END 2019-07-27 16:02 | disposition home or self-care (01) ==
LOC: EDUNIT# 11:25 → ER 11:26
DX: R07.89 Other chest pain (principal); F17.210 Nicotine dependence, cigarettes, uncomplicated; Z88.0 Allergy status to penicillin
CPT/HCPCS: 36415; 71045; 80053; 83690; 83735; 83874; 84484; 85025; 85379; 85610; 85730; 93005; 93041

== ENCOUNTER → 2019-07-29 | Outpatient (CLI) | payer MEDICARE, OTHER ==
[~2019-07-29] VITALS: Ht 157 cm; Wt 75.0 kg
[~2019-07-29] MED LIST changes: +CATHETER FLUSH 10 ML SYR IV PRN; +METO50TA7; +NAPR-915; +OMEP20CA18; +REGADENOSON 0.4 MG/5 ML SYR (LEXISCAN) IV ONE
[2019-08-02 14:59] VITALS: BP 140/80
--- NOTE | 2019-08-02 14:59 | Cardiology Stress Test Report ---
Stress Test Report Type of NM Stress Test: Test Type: LEXISCAN 0.4MG/5ML Date of Procedure/Referring: Date of Procedure: Jul 29, 2019 PCP Guzman Gayle MD Admitting Physician Milton Blount MD Indications: Chest pain Baseline Heart Rate: 86 Baseline Blood Pressure: Blood Pressure Systolic: 140 Blood Pressure Diastolic: 80 Baseline EKG: Baseline EKG: Sinus rhythm Summary & Conclusion: Summary: The patient was brought to the stress lab after informed consent was taken. Stress test was performed according to the Lexiscan protocol. 0.4 mg of IV Lexiscan was given. Low-grade exercise was performed. Baseline EKG showed sinus rhythm at 86 bpm, blood pressure 140/80 mmHg. Maximum heart rate of 120 BPM and blood pressure 150/79 mmHg. Patient did not have any chest pain, arrhythmias or ST segment changes during the stress test. 10.73 mCi of Myoview were given for rest imaging and 32.1 mCi of Myoview given for stress imaging. Transient ischemic dilatation score 1.07, EF 65 percent. Normal wall motion. Normal myocardial perfusion imaging during rest and stress. Conclusion: Pharmacological stress test was negative for ischemia. Normal LV function with no wall motion abnormalities. Normal myocardial perfusion imaging during rest and stress. Guzman GAYLE MD Aug 02, 2019 14:59
== END ==
LOC: CARD 11:27
PROVIDERS: ATTEND Internal Medicine Interventional Cardiology
DX: R07.9 Chest pain, unspecified (principal); F17.200 Nicotine dependence, unspecified, uncomplicated
CPT/HCPCS: 78452; 93017; 93306

== ENCOUNTER 2019-08-30 05:41 | Outpatient (RCR) | payer MEDICARE, OTHER ==
[~2019-08-30] VITALS: Ht 157.5 cm; Wt 72.9 kg
[~2019-08-30 05:41] MED LIST changes: -CATHETER FLUSH 10 ML SYR IV PRN; +HYDR200T78 PO; -METO50TA7; +METO50TA7 PO; -OMEP20CA18; +OMEP20CA18 PO; -REGADENOSON 0.4 MG/5 ML SYR (LEXISCAN) IV ONE
== END 2019-08-30 14:16 | disposition home or self-care (01) ==
LOC: PREOP 05:41
PROVIDERS: ATTEND Surgery
DX: Z01.818 Encounter for other preprocedural examination (principal); Z11.59 Encounter for screening for other viral diseases
CPT/HCPCS: 87635

== ENCOUNTER 2019-09-01 10:02 | Day surgery (SDC) | payer MEDICARE, OTHER ==
[2019-09-01] VITALS (17 sets, daily range): BP systolic 103–150; BP diastolic 46–81
[~2019-09-01] VITALS: Ht 157.5 cm; Wt 72.9 kg
--- NOTE | 2019-09-01 10:09 | Progress Note-Pre Operative ---
Pre-Operative Progress Note H&P Reviewed The H&P was reviewed, patient examined and no changes noted. Date Seen by Provider: Sep 01, 2019 Time Seen by Provider: 10:00 Date H&P Reviewed: Sep 01, 2019 Time H&P Reviewed: 10:00 Pre-Operative Diagnosis: LASHON MORENO MD Sep 01, 2019 10:09
--- NOTE | 2019-09-01 10:09 | Conscious Sedation/ASA ---
Conscious Sedation Pre-Proced Time 10:00 ASA Score 2 For ASA 3 and 4: Consider anesthesia and medical clearance. Also, for patients with a history of failed moderate sedation consider anesthesia. Airway Lungs Heart ASA score ASA 1: a normal healthy patient ASA 2: a patient with a mild systemic disease (mid diabetes, controlled hypertension, obesity ASA 3: a patient with a severe systemic disease that limits activity (angina, COPD, prior Myocardial infarction) ASA 4: a patient with an incapacitating disease that is a constant threat to life (CHF, renal failure) ASA 5: a moribund patient not expected to survive 24 hrs. (ruptured aneurysm) ASA 6: a declared brain- patient whose organs are being harvested. For emergent operations, add the letter E after the classification Mallampati Classification Grade 2 Sedation Plan Analgesia, Amnesia, Plan communicated to team members, Discussed options with patient/fam, Discussed risks with patient/fam The patient is an appropriate candidate to undergo the planned procedure, sedation, and anesthesia. The patient immediately re-assessed prior to indication. LASHON JOHNSON MD Sep 01, 2019 10:09
--- NOTE | 2019-09-01 10:11 | Discharge Inst-Surgical ---
D/C Lap Instructions-ALEX Follow Up Activity as tolerated High Fiber Diet 25g or more per day Avoid Alcohol, Caffeine, Spicy [place] and Acid foods. Drink 64 fluid oz or more of fluids per day. Symptoms to Report: Fever over 101 degree F, Nausea/Vomiting If any problems/questions: Contact your physician or go to Emergency Room LASHON JOHNSON MD Sep 01, 2019 10:11
[2019-09-01] MEDS ORDERED: NS IV 500 ML 500 ML IV PRN (10:12)
[2019-09-01] MEDS ORDERED: NS IV 500 ML 500 ML ONE (10:12)
[2019-09-01] MEDS ORDERED: HYDROcodone/APAP 5 MG/325 MG (LORTAB) TAB PO PRN (10:15)
[2019-09-01] MEDS ORDERED: ONDANSETRON 4 MG/2 ML (SDV) Z0FRAN IVP PRN (10:15)
[2019-09-01] MEDS ORDERED: LIDOCAINE JELLY 2% 6 ML SYRINGE MM PRN (10:15)
[2019-09-01] MEDS ORDERED: ACETAMINOPHEN 325 MG TABLET PO PRN (10:15)
[2019-09-01] MEDS ORDERED: morphine INJ 10 MG/ML 1ML (SYR OR VIAL) IVP PRN ×2 (10:15)
[2019-09-01] MEDS ORDERED: HURRICAINE EXT TUBE (BENZOCAINE) XX PRN (10:15)
--- OUTSIDE RECORDS SUMMARY | 2019-09-01 10:42 | XMS REPORT | Continuity of Care Document ---
Author Organization Unknown Address Unknown Phone Unavailable Allergies Active Description Code Type Severity Reaction Onset Reported/Identified Relationship to Patient Clinical Status Yes PENICILLIN PENICILLIN Unknown N/A 10/16/2017 Yes Penicillins [id number] Drug Aller gy Unknown Itching 08/25/2019 Medications There is no data. Problems Date [...] ENCNTR SCREEN MAMMOGRAM FOR MALIGNANT NE 10/16/2017 ROMARIOJAIMIE BERG MD Ot E78.00 PURE HYPERCHOLESTEROLEMIA, UNSPECIFIED 10/16/2017 [...] INITIAL 10/16/2017 JAIMIE DOSS MD Ot Y92.410 [facility] [address] 10/16/2017 JAIMIE DOSS [...] INITIAL 10/20/2017 JAIMIE DOSS MD Ot Y92.[address] [facility] [address] 10/20/2017 JAIMIE DOSS MD Ot Y93.01 ACTIVITY, WALKING, MARCHING AND HIKING 10/20/2017 JAIMIE DOSS MD Ot Z88.0 ALLERGY STATUS TO PENICILLIN 10/20/2017 JAIMIE DOSS MD Ot Z98.51 TUBAL LIGATION STATUS 04/09/2018 CHELLY MATEO R HI LO DRIVER Ot Z12.31 ENCNTR SCREEN MAMMOGRAM FOR MALIGNANT NE 01/25/2019 DANIELLE ROSALES MD Ot Z12.3 1 ENCNTR SCREEN MAMMOGRAM FOR MALIGNANT NE 01/25/2019 CHELLY, MATEO R HI LO DRIVER Ot Z12.31 ENCNTR SCREEN MAMMOGRAM FOR MALIGNANT NE 01/27/2019 CHELLY, MATEO R HI LO DRIVER Ot M20.12 HALLUX VALGUS (ACQUIRED), LEFT FOOT 01/27/2019 CHELLY, MATEO R HI LO DRIVER Ot M21.612 BUNION OF LEFT FOOT 01/27/2019 CHELLY, MATEO R HI LO DRIVER Ot M77.32 CALCANEAL SPUR, LEFT FOOT 02/03/2019 CHELLY, MATEO R HI LO DRIVER Ot M20.12 HALLUX VALGUS (ACQUIRED), LEFT FOOT 02/03/2019 CHELLY, MATEO R HI LO DRIVER Ot M21.612 BUNION OF LEFT FOOT 02/03/2019 CHELLY, MATEO R HI LO DRIVER Ot M77.32 CALCANEAL SPUR, LEFT FOOT 02/19/2019 CHELLY, MATEO R HI LO DRIVER Ot M20.12 HALLUX VALGUS (ACQUIRED), LEFT FOOT 02/19/2019 CHELLY, MTAEO R HI LO DRIVER Ot M21.612 BUNION OF LEFT FOOT 02/19/2019 CHELLY, MATEO R HI LO DRIVER Ot M77.32 CALCANEAL SPUR, LEFT FOOT 03/23/2019 CHELLY, MATEO R HI LO DRIVER Ot Z12.31 ENCNTR SCREEN MAMMOGRAM FOR MALIGNANT NE 04/20/2019 MESFIN, MAICOL E HI LO DRIVER Ot M19.011 PRIMARY OSTEOARTHRITIS, RIGHT SHOULDER 04/20/2019 MAICOL TOURE E HI LO DRIVER Ot M50.23 OTHER CERVICAL DISC DISPLACEMENT, CERVIC 04/20/2019 CHELLY MATEO R HI LO DRIVER Ot Z12.31 ENCNTR SCREEN MAMMOGRAM FOR MALIGNANT NE 04/23/2019 MAICOL TOURE E HI LO DRIVER Ot M19.011 PRIMARY OSTEOARTHRITIS, RIGHT SHOULDER 04/23/2019 MAICOL TOURE HI LO DRIVER Ot M50.23 OTHER CERVICAL DISC DISPLACEMENT, CERVIC 07/27/2019 DANIELLE ROSALES MD Ot Z12.3 1 ENCNTR SCREEN MAMMOGRAM FOR MALIGNANT NE 07/27/2019 MATEO SPAULDING HI LO DRIVER Ot Z12.31 ENCNTR SCREEN MAMMOGRAM FOR MALIGNANT NE 07/27/2019 MATEO SPAULDING HI LO DRIVER Ot M20.12 HALLUX VALGUS (ACQUIRED), LEFT FOOT 07/27/2019 MATEO SPAULDING R HI LO DRIVER Ot M21.612 BUNION OF LEFT FOOT 07/27/2019 CHELLY MATEO R HI LO DRIVER Ot M77.32 CALCANEAL SPUR, LEFT FOOT 07/27/2019 MATEO SPAULDING HI LO DRIVER Ot Z12.31 ENCNTR SCREEN MAMMOGRAM FOR MALIGNANT NE 07/29/2019 JAIMIE DOSS MD Ot F17.210 NICOTINE DEPENDENCE, CIGARETTES, UNCOMPL 07/29/2019 JAIMIE DOSS MD Ot R07.89 OTHER CHEST PAIN 07/29/2019 JAIMIE DOSS MD Ot R07.9 CHEST PAIN, UNSPECIFIED 07/29/2019 JAIMIE DOSS MD Ot Z88.0 ALLERGY STATUS TO PENICILLIN 08/03/2019 Guzman JONAS MD Ot F17.200 NICOTINE DEPENDENCE, UNSPECIFIED, UNCOMP 08/03/2019 Guzman JONAS MD Ot R07 .9 CHEST PAIN, UNSPECIFIED 08/10/2019 JAIMIE DOSS MD Ot F17.210 NICOTINE DEPENDENCE, CIGARETTES, UNCOMPL 08/10/2019 JAIMIE DOSS MD Ot R07.89 OTHER CHEST PAIN 08/10/2019 JAIMIE DOSS MD Ot R07.9 CHEST PAIN, UNSPECIFIED 08/10/2019 JAIMIE DOSS MD Ot Z88.0 ALLERGY STATUS TO PENICILLIN 08/20/2019 Guzman JONAS MD Ot F17.200 NICOTINE DEPENDENCE, UNSPECIFIED, UNCOMP 08/20/2019 Guzman JONAS MD Ot R07 .9 CHEST PAIN, UNSPECIFIED Procedures There is no data. Results Test [...] blood basophil count (count/volume) 0.1 10*3/uL 0.0-0.1 Serum or plasma troponin i.cardiac measu rement (mass/volume) - 07/27/19 11:35 Serum or plasma troponin i.cardiac measurement (mass/v olume) < ng/mL <0.028 PT panel in platelet poor plasma by coag ulation assay - 07/27/19 11:35 Prothrombin time (PT) in platelet poor plasma by coagu lation assay 13.6 s 12.2-14.7 INR in platelet poor plasma or blood by coagulation as say 1.0 0.8-1.4 Activated partial thromboplastin time (a PTT) in platelet poor plasma bycoagulation assay - 07/27/19 11:35 Activated partial thromboplastin time (a PTT) in platelet poor plasma bycoagulation assay 28 s 24-35 Fibrin D-dimer FEU measurement in platel et poor plasma (mass/volume) - 07/27/19 11:35 Fibrin D-dimer FEU measurement in platelet poor plasma (mass/volume) <= ug/mL 0.00-0.49 Comprehensive metabolic panel - 07/27/19 11:35 Serum or plasma sodium measurement (moles/volume) 135 mmol/L 135-145 Serum or plasma potassium measurement (moles/volume) 4.3 mmol/L 3.6-5.0 Serum or plasma chloride measurement (moles/volume) 103 mmol/L 98-107 Carbon dioxide 19 mmol/L 21-32 Serum or plasma anion gap determination (moles/volume) 13 mmol/L 5-14 Serum or plasma urea nitrogen measurement (mass/volume ) 20 mg/dL 7-18 Serum or plasma creatinine measurement (mass/volume) 0.81 mg/dL 0.60-1.30 Serum or plasma urea nitrogen/creatinine mass ratio 25 NRG Serum or plasma creatinine measurement w ith calculation of estimated glomerular filtration rate > NRG Serum or plasma glucose measurement (mass/volume) 79 mg/dL 70-105 Serum or plasma calcium measurement (mass/volume) 9.3 mg/dL 8.5-10.1 Serum or plasma total bilirubin measurement (mass/volu me) 0.5 mg/dL 0.1-1.0 Serum or plasma alkaline phosphatase srini surement (enzymatic activity/volume) 56 U/L 40-136 Serum or plasma aspartate aminotransfera se measurement (enzymatic activity/volume) 23 U/L 5-34 Serum or plasma alanine aminotransferase measurement (enzymatic activity/volume) 16 U/L 0-55 Serum or plasma protein measurement (mass/volume) 7.3 g/dL 6.4-8.2 Serum or plasma albumin measurement (mass/volume) 4.3 g/dL 3.2-4.5 CALCIUM CORRECTED 9.1 mg/dL 8.5-10.1 Magnesium - 07/27/19 11:35 Magnesium 2.1 mg/dL 1.6-2.4 Myoglobin, serum - 07/27/19 11:35 Myoglobin, serum 62.6 ng/mL 10.0-92.0 Lipase - 07/27/19 11:35 Lipase 42 U/L 8-78 Serum or plasma troponin i.cardiac measu rement (mass/volume) - 07/27/19 13:27 Serum or plasma troponin i.cardiac measurement (mass/v olume) < ng/mL <0.028 Coronavirus SARS-CoV-2 SO 2018 - 0 08:03 Coronavirus Ab [Units/volume] in Serum Negative Negative Encounters ACCT No. Visit Date/Time Discharge Status Pt. Type Provider Facility Loc./Unit Complaint [id number] 08/30/2019 05:41:00 14:16:00 DIS Outpatient LASHON JOHNSON MD [facility] PREOP EGD [id number] 07/29/2019 11:27:00 23:59:59 CLS Outpatient Guzman JONAS MD [facility] CARD CHEST PAIN [id number] 07/27/2019 11:26:00 16:02:00 DIS Outpatient JAIMIE DOSS MD [facility] ER CHEST PAIN [id number] 04/23/2019 10:29:00 13:00:00 DIS Outpatient MAICOL TOURE APRN [facility] REHAB RC ARTHROPLSTY R SHOULD ER; DDD C6-7 [id number] 03/22/2019 07:51:00 23:59:59 CLS Outpatient MATEO SPAULDING APRN [facility] RAD SCREENING [id number] 01/25/2019 11:57:00 23:59:59 CLS Outpatient MATEO SPAULDING APRN [facility] RAD LEFT FOOT PAIN [id number] 03/19/2018 10:09:00 019 23:59:59 CLS Outpatient MATEO SPAULDING APRN [facility] RAD SCREENING [id number] 10/16/2017 07:51:00 018 11:55:00 DIS Emergency JAIMIE DOSS MD [facility] ER CP [id number] 03/18/2017 08:16:00 23:59:59 CLS Outpatient DANIELLE ROSALES MD [facility] RAD SCREENING [id number] 11/14/2016 10:21:00 017 23:59:59 CLS Outpatient DANIELLE ROSALES MD [facility] LAB WHITE COUNT ELEVATED [id number] 05/08/2016 08:04:00 017 23:59:59 CLS Outpatient DANIELLE ROSALES MD [facility] RAD PAIN RT POSTERIOR KNEE [id number] 09/01/2019 11:15:00 P EN LASHON Blackmon MD [facility] [place] ENDO EPIGASTRIC PAIN [id number] 12/15/2009 08:55:00 Document Registration [id number] 11/23/2009 17:36:00 Document Registration
[2019-09-01] MEDS ORDERED: LIDOCAINE JELLY 2% 6 ML SYRINGE ONE (10:55)
[2019-09-01] MEDS ORDERED: fentaNYL INJECTION 100 MCG/2 ML AMP ONE ×2 (10:55)
[2019-09-01] MEDS ORDERED: HURRICAINE EXT TUBE (BENZOCAINE) ONE (10:56)
[2019-09-01] MEDS ORDERED: MIDAZOLAM 5 MG/5 ML (VERSED) VIAL ONE ×2 (10:56)
[2019-09-01] MEDS: fentaNYL INJECTION 100 MCG/2 ML AMP IVP ONE (11:05)
[2019-09-01] MEDS: MIDAZOLAM 5 MG/5 ML (VERSED) VIAL IV PRN ×2 (11:25→11:28)
--- NOTE | 2019-09-01 16:16 | OPERATIVE REPORT ---
DATE OF SERVICE: 09/01/2019 ATTENDING PRIMARY CARE PHYSICIAN: Dr. Milton Blount. PREOPERATIVE DIAGNOSIS: Gastroesophageal reflux disease. POSTOPERATIVE DIAGNOSES: Reflux esophagitis stage II, small hiatal hernia 1.5 cm in size, moderate gastritis. PROCEDURE: EGD with biopsy. SURGEON: Lashon Johnson MD ANESTHESIA: Conscious sedation. ESTIMATED BLOOD LOSS: Minimal. FINDINGS: Reflux esophagitis stage II, small hiatal hernia 1.5 cm in size, moderate gastritis. DISPOSITION: The patient tolerated the procedure well. INDICATIONS: The patient is a 64-year-old female who was referred over to us for epigastric and chest pressure sensation. She reports that she has had this for a few months; however, did have a very severe episode and presented to the Emergency Department where she was seen by cardiology and worked up and no cardiac etiology was identified. She does report occasional episodes of reflux and regurgitation. She states that she did have an EGD approximately 10 years ago and was found to have a small hiatal hernia. DESCRIPTION OF PROCEDURE: The patient was brought to the endoscopy suite, laid in the left lateral decubitus position. After adequate IV pain and sedative medications and conscious sedation anesthesia, the mouthpiece was applied. The endoscope was then placed in the mouth, visualizing the pharynx and hypopharyngeal region. Vocal cords, epiglottis and vallecula identified and appeared to be normal. The endoscope was then gently intubated at esophageal opening and esophagus insufflated. The endoscope was then advanced through the first, second and third portion of esophagus at the level of the GE junction, a reflux esophagitis stage II identified. There were no ulcers or strictures identified in this region. A biopsy was taken with forceps with visualization of good hemostasis. The endoscope was then advanced into the stomach and endoscope retroflexed, visualizing a small hiatal hernia approximately 1.5 cm in size. There was a mild to moderate gastritis. No formal ulcerations, polyps, or any neoplasms. A biopsy was taken of the antrum to rule out H. pylori with visualization of good hemostasis. The endoscope was then advanced to the pylorus and the first and second portion of the duodenum, which appeared normal with no distal obstructions. The endoscope was then slowly withdrawn while taking a second look and suctioning of residual air with no additional findings. The patient tolerated the procedure well. For her reflux esophagitis, we will recommend the necessary lifestyle and diet accommodation including small and more frequent meals, avoidance of eating at night as well as head elevation while lying supine. She also needs to avoid caffeinated beverages, spicy, greasy and acidic foods as well as chocolate and peppermint. We will also switch her from her 20 mg of omeprazole dosing to pantoprazole 40 mg daily. Job ID: [id number] DocumentID: [id number] Dictated Date: 09/01/2019 11:46:50 Instrumentation Specialist Date: 09/01/2019 16:15:29 Dictated By: LASHON JOHNSON MD
== END 2019-09-01 12:45 | disposition home or self-care (01) ==
LOC: ENDO 10:02
PROVIDERS: ATTEND Surgery
DX: K21.0 Gastro-esophageal reflux disease with esophagitis (principal); K29.60 Other gastritis without bleeding; K44.9 Diaphragmatic hernia without obstruction or gangrene; K29.70 Gastritis, unspecified, without bleeding; R01.1 Cardiac murmur, unspecified; M06.9 Rheumatoid arthritis, unspecified; Z79.899 Other long term (current) drug therapy; Z86.15 Personal history of latent tuberculosis infection; F17.210 Nicotine dependence, cigarettes, uncomplicated; Z88.0 Allergy status to penicillin
CPT/HCPCS: 88305

== ENCOUNTER 2021-01-09 08:54 | Outpatient (RCR) | payer MEDICARE, OTHER ==
[2021-01-02 13:00] VITALS: BP 119/60
[2021-01-02] MEDS: DAPTOmycin 500 MG/NS 50 ML IVPB IV SCH ×2 (13:20)
[2021-01-02 14:04] LABS: CALCIUM 9.5 MG/DL (8.5-10.1); CREATININE SERUM 0.77 MG/DL (0.60-1.30)
[2021-01-03 12:50] VITALS: BP 123/67
[2021-01-03] MEDS: DAPTOmycin 500 MG/NS 50 ML IVPB IV SCH ×2 (13:28)
[2021-01-04 12:45] VITALS: BP 128/56
[2021-01-04] MEDS: DAPTOmycin 500 MG/NS 50 ML IVPB IV SCH ×2 (13:00)
[2021-01-05] MEDS: DAPTOmycin 500 MG/NS 50 ML IVPB IV SCH ×2 (10:00)
[2021-01-05 10:40] VITALS: BP 122/70
[2021-01-06] MEDS: DAPTOmycin 500 MG/NS 50 ML IVPB IV SCH ×2 (09:55)
[2021-01-06 10:25] VITALS: BP 128/58
[2021-01-07 09:00] VITALS: BP 142/71
[2021-01-07] MEDS: DAPTOmycin 500 MG/NS 50 ML IVPB IV SCH ×2 (10:00)
[2021-01-08 09:33] LABS: BASOPHILS # (AUTO) 0.1 10^3/uL (0.0-0.1); BASOPHILS % (AUTO) 1 % (0-10); EOSINOPHILS # (AUTO) 0.2 10^3/uL (0.0-0.3); EOSINOPHILS % (AUTO) 1 % (0-10); HEMATOCRIT 44 % (35-52); HEMOGLOBIN 14.2 g/dL (11.5-16.0); LYMPHOCYTES # (AUTO) 3.8 10^3/uL (1.0-4.0); LYMPHOCYTES % (AUTO) 34 % (12-44); MEAN CORPUSCULAR HEMOGLOBIN 29 pg (25-34); MEAN CORPUSCULAR HGB CONC 33 g/dL (32-36); MEAN CORPUSCULAR VOLUME 88 fL (80-99); MEAN PLATELET VOLUME 9.9 fL (9.0-12.2); MONOCYTES # (AUTO) 0.8 10^3/uL (0.0-1.0); MONOCYTES % (AUTO) 7 % (0-12); NEUTROPHILS # (AUTO) 6.3 10^3/uL (1.8-7.8); NEUTROPHILS % (AUTO) 56 % (42-75); PLATELET COUNT 395 10^3/uL (130-400); WHITE BLOOD COUNT 11.2 10^3/uL (4.3-11.0)
[2021-01-08 09:49] LABS: BILIRUBIN,TOTAL 0.4 MG/DL (0.1-1.0); CALCIUM 9.4 MG/DL (8.5-10.1); CREATININE SERUM 0.68 MG/DL (0.60-1.30); POTASSIUM 4.2 MMOL/L (3.6-5.0); TOTAL PROTEIN 7.4 GM/DL (6.4-8.2)
[2021-01-08] MEDS: DAPTOmycin 500 MG/NS 50 ML IVPB IV SCH ×2 (09:53)
[2021-01-08 10:10] LABS: ERYTHROCYTE SEDIMENTATION RATE 12 MM/HR (0-30)
[2021-01-08 10:25] VITALS: BP 144/73
[~2021-01-09] VITALS: Ht 157 cm; Wt 72.9 kg
[2021-01-09 08:53] VITALS: BP 122/64
[2021-01-09] MEDS: DAPTOmycin 500 MG/NS 50 ML IVPB IV SCH ×2 (09:43)
== END 2021-01-11 13:03 | disposition home or self-care (01) ==
LOC: SDC 08:54
PROVIDERS: ATTEND Family Medicine
DX: T85.79XA Infection and inflammatory reaction due to other internal prosthetic devices, implants and grafts, initial encounter (principal); Z79.2 Long term (current) use of antibiotics
CPT/HCPCS: 36415; 80048; 80053; 82550; 85025; 85652; 96365

== ENCOUNTER → 2021-05-17 | Outpatient (CLI) | payer MEDICARE, OTHER ==
--- NOTE | 2021-05-17 11:36 | Diagnostic Imaging Report ---
EXAMINATION: CT Lung Screening. INDICATION: 30 pack year smoking history. She presents for annual low-dose CT screening. TECHNIQUE: Noncontrast, low-dose CT imaging performed according to the lung cancer screening protocol. Auto Exposure Controls were utilize during the CT exam to meet ALARA standards for radiation dose reduction. COMPARISON: 10/16/2017. FINDINGS: The stable benign 3 mm interfissural groundglass nodule associated with the right minor fissure seen on image 113 is present and chronic. No new, dominant, or suspicious lung mass. There are no findings of lung cancer. No evidence for edema or pneumonia. There is no thoracic adenopathy. No pleural or pericardial effusion. No aneurysm. IMPRESSION: Stable benign findings. Continued annual low-dose CT screening followup is recommended. LUNG-RADS CATEGORY:Category 2. MODIFIER:None. OTHER SIGNIFICANT FINDINGS:None. Dictated by: Dictated on workstation # [id number]
--- NOTE | 2021-05-17 12:30 | Diagnostic Imaging Report ---
INDICATION: Routine screening. COMPARISON: 03/22/2019 and 03/19/2018. TECHNIQUE: 2D and 3D bilateral screening mammography was performed with CAD. FINDINGS: Scattered fibroglandular densities are identified bilaterally. The previously noted intraparenchymal lymph node in the outer right breast has decreased slightly in size. No spiculated mass or malignant-appearing microcalcifications are seen. The axillae are unremarkable. IMPRESSION: No mammographic features suspicious for malignancy are identified. ACR BI-RADS Category 2: Benign findings. Result letter will be mailed to the patient. Note: At least 10% of breast cancer is not imaged by mammography. Dictated by: Dictated on workstation # [id number]
== END ==
LOC: RAD 09:45
PROVIDERS: ATTEND Nurse Practitioner Family
DX: Z12.2 Encounter for screening for malignant neoplasm of respiratory organs (principal); Z12.31 Encounter for screening mammogram for malignant neoplasm of breast; F17.210 Nicotine dependence, cigarettes, uncomplicated
CPT/HCPCS: 71271; 77063; 77067

== ENCOUNTER 2022-01-14 05:40 | Outpatient (CLI) | payer MEDICARE, OTHER ==
[~2022-01-14] VITALS: Ht 157.5 cm; Wt 80.2 kg
[2022-01-15] MEDS ORDERED: GOLI50VI IV (10:04)
[2022-01-15] MEDS ORDERED: GABA-490 PO (10:04)
[2022-01-15] MEDS ORDERED: NAPR-915 PO (10:04)
[2022-01-15] MEDS ORDERED: PANT40TA2 PO (10:04)
== END 2022-01-15 10:06 ==
LOC: PREOP 05:40
PROVIDERS: ATTEND Surgery
DX: Z01.818 Encounter for other preprocedural examination (principal)

== ENCOUNTER → 2022-04-10 | Day surgery (SDC) | payer MEDICARE, OTHER ==
--- NOTE | 2022-03-12 14:17 | HISTORY AND PHYSICAL ---
ATTENDING PRIMARY CARE PHYSICIAN: Dr. Milton Blount. INDICATIONS: The patient is a 66-year-old female who is known to us. She was seen in 07/2019 for epigastric pressure sensation as well as episodes of reflux and regurgitation. She did report a severe episode in which she presented to the Emergency Department where she was seen by Cardiology at that time; however, no etiology was identified. She was then referred over to us and underwent EGD with biopsy on 09/01/2019. At that time, she was found to have reflux esophagitis stage II, small hiatal hernia 1.5 cm in size and a moderate gastritis. Biopsies were negative for H. pylori as well as negative for Cazares's esophagus. On today's visit, she reports that she has done well until about two to three months ago when she started having increasing episodes of regurgitation. She reports that she would get a sour taste in her mouth and reports that she would even have the liquids come up in her throat and mouth. She reports that at times she feels like some food does get stuck on the right side of her throat. She reports that she did see her primary care physician recently and was instructed to increase her PPI acid central station operator twice daily. She reports that this did help some; however, continued to have the symptoms. She does have a 12-bjjh-wokd smoking history. MEDICAL HISTORY: Rheumatoid arthritis. PREOPERATIVE DIAGNOSIS: Gastroesophageal reflux disease. INDICATION: Heart palpitations, hiatal hernia, latent TB in 2016. PAST SURGICAL HISTORY: Tonsillectomy, wisdom teeth extraction, tubal ligation in 1983, left knee arthroscopy, right knee arthroscopy, ORIF of the right third toe 2016, spinal cord stimulator placement x2 with removal of the first one in 2020 and then 2021. ALLERGIES: PENICILLIN. MEDICATIONS: Protonix 40 mg b.i.d., Simponi Aria, metoprolol ER 50 mg daily, naproxen 500 mg, gabapentin 300 mg. SOCIAL HISTORY: Positive for tobacco smoking 1 pack per day for 32 years, rare for alcohol. FAMILY HISTORY: Mother, hypertension, stroke. VITAL SIGNS: Blood pressure is 132/68, current weight is 176.8 pounds, 5 feet 2 inches. REVIEW OF SYSTEMS: Well-nourished female in no acute distress. She is not experiencing any shortness of breath or difficulty breathing. No chest pain. Does have a history of heart palpitations. No nausea or vomiting. She does report episodes of regurgitation as well as dysphagia. She denies any hematemesis or any coffee-ground emesis. No diarrhea or constipation. No red blood per rectum. No dark tarry stools. No fever or chills. No recent inadvertent weight loss. All other review of systems negative. PHYSICAL EXAMINATION: CHEST: Clear. Good breath sounds bilaterally. HEART: Regular. No murmurs. EXTREMITIES: No lower extremity edema. Negative Homans sign. HEENT: No scleral icterus. No cervical lymphadenopathy. ABDOMEN: Soft, nontender, nondistended. SKIN: Warm, dry and pink. NEUROLOGIC: He is awake, alert and oriented x3. ASSESSMENT AND PLAN: A 66-year-old female with dysphagia as well as reflux. At this time, we will proceed with scheduling her for an EGD with biopsies as appropriate as well as possible balloon dilatation. Job ID: [id number] DocumentID: [id number] Dictated Date: 03/12/2022 11:22:13 Cloth Napping Supervisor Date: 03/12/2022 14:14:00 Dictated By: MARLENA PRITCHETT APRN
--- NOTE | 2022-04-01 13:35 | HISTORY AND PHYSICAL ---
PRIMARY AUTOMOBILE BRAKE BONDER: Dr. Fabiano Blount. INDICATIONS: The patient is a 66-year-old female who is known to us. She was seen in July of 2019 for epigastric pressure sensation as well as episodes of reflux and regurgitation. She did report a severe episode in which she presented to the Emergency Department and was seen by Cardiology at that time; however, no etiology was identified. She was then referred over to us for EGD and a biopsy, which was done on 09/01/2019. At that time, she was found to have reflux esophagitis stage II, small hiatal hernia, 1.5 cm in size and a moderate gastritis. Biopsies were negative for H. pylori as well as negative for Cazares's esophagus. On today's visit, she reports that she had done well until the last two to three months when she reports that she started having increasing episodes of regurgitation. She reports that she would get a sour taste in her mouth and reports that she would even have liquids come up into her throat and mouth. She also reports that at times she feels like some foods would get stuck on the right side of her throat. She reports that she did see her primary care physician recently and was instructed to increase her PPI acid shell sorter to twice daily. She reports that this did help some; however, still continued to have symptoms. She does have a 72-lqua-egzn smoking history. MEDICAL HISTORY: Rheumatoid arthritis. Gastroesophageal reflux disease. Heart palpitations. Hiatal hernia. Latent TB in 2017. PAST SURGICAL HISTORY: Tonsillectomy, wisdom teeth extraction, tubal ligation in 1983, left knee arthroscopy, right knee arthroscopy, ORIF of the right third toe 2016. Spinal cord stimulator placement x2 with removal of the first one in 2020 and then replacement in 2021. ALLERGIES: PENICILLIN. MEDICATIONS: Protonix 40 mg b.i.d., Simponi Aria, metoprolol succinate ER 50 mg daily, naproxen 500 mg, gabapentin 300 mg. SOCIAL HISTORY: Positive for tobacco, smoked 1 pack per day for 32 years, rare for alcohol. FAMILY HISTORY: Mother, hypertension, stroke. VITAL SIGNS: Blood pressure is 132/68, current weight is 176.8 pounds at 5 feet 2 inches. REVIEW OF SYSTEMS: Well-nourished female in no acute distress. She is not experiencing any shortness of breath or difficulty breathing. No chest pain, palpitations or diaphoresis. No nausea, vomiting or abdominal pain. No diarrhea or constipation. No red blood per rectum. No dark tarry stools. She does report heartburn as well as difficulty swallowing. No fever or chills. No recent inadvertent weight loss. All other review of systems negative. PHYSICAL EXAMINATION: CHEST: Clear. Good breath sounds bilaterally. HEART: Regular. No murmurs. EXTREMITIES: No lower extremity edema. Negative Homans sign. HEENT: No scleral icterus. No cervical lymphadenopathy. ABDOMEN: Soft, nontender, nondistended. SKIN: Warm, dry and pink. NEUROLOGIC: Awake, alert and oriented x3. ASSESSMENT AND PLAN: A 66-year-old female with dysphagia as well as reflux. At this time, we will proceed with scheduling her for EGD with biopsy as appropriate as well as possible balloon dilatation. Job ID: [id number] DocumentID: [id number] Dictated Date: 04/01/2022 10:14:07 Ostomy Nurse Date: 04/01/2022 13:05:00 Dictated By: MARLENA PRITCHETT APRN
[~2022-04-10] VITALS: Ht 158 cm; Wt 80.2 kg
[~2022-04-10] MED LIST changes: +GABA-490 PO; +GOLI50VI IV; +HURRICAINE EXT TUBE (BENZOCAINE) XX PRN; +LACTATED RINGERS 1,000 ML IV STA; +LIDOCAINE JELLY 2% 6 ML SYRINGE MM PRN; +LIDOCAINE JELLY 2% 6 ML SYRINGE ONE; +MIDAZOLAM 2 MG/2 ML (VERSED) VIAL ONE; +NAPR-915 PO; +ONDANSETRON 4 MG (ZOFRAN) ORAL DISSOLVE TAB PO PRN; +ONDANSETRON 4 MG/2 ML (SDV) Z0FRAN IVP PRN; +PANT40TA2 PO; +proPOfol 200 MG/20 ML (DIPRIVAN) VIAL IV ONE
[2022-04-10 11:25] VITALS: BP 121/58
--- NOTE | 2022-04-10 11:47 | Progress Note-Pre Operative ---
Pre-Operative Progress Note Date of Available H&P: Apr 10, 2022 Date H&P Reviewed: Apr 10, 2022 Time H&P Reviewed: 11:30 History & Physical: No changes noted Pre-Operative Diagnosis: GERD, dysphagia LASHON JOHNSON MD Apr 10, 2022 11:47
--- NOTE | 2022-04-10 11:48 | Discharge Inst-Surgical ---
D/C Lap Instructions-ALEX Follow Up Activity as tolerated High Fiber Diet 25g or more per day Avoid Alcohol, Caffeine, Spicy [place] and Acid foods. Drink 64 fluid oz or more of fluids per day. Symptoms to Report: Fever over 101 degree F, Nausea/Vomiting If any problems/questions: Contact your physician or go to Emergency Room LASHON JOHNSON MD Apr 10, 2022 11:48
[2022-04-10 14:35] VITALS: BP 82/46
--- NOTE | 2022-04-10 14:39 | Anesthesia-General Post-Op ---
MAC Patient Condition Mental Status/LOC: Same as Preop Cardiovascular: Satisfactory Nausea/Vomiting: Absent Respiratory: Satisfactory Pain: Controlled Complications: Absent Post Op Complications Complications None Follow Up Care/Instructions Patient Instructions None needed. Anesthesiology Discharge Order Discharge Order Patient is doing well, no complaints, stable vital signs, no apparent adverse anesthesia problems. No complications reported per nursing. IMANI RIOJAS CRNA Apr 10, 2022 14:39
[2022-04-10 14:40] VITALS: BP 95/49
--- NOTE | 2022-04-10 14:51 | Progress Note-Post Operative ---
Post-Operative Progess Note Surgeon (s)/Tobacco Prevention Health Educator (s) Surgeon LASHON JOHNSON MD Tobacco Prevention Health Educator: none Pre-Operative Diagnosis GERD, dysphagia Post-Operative Diagnosis reflux esophagitis(grade B), mild dist esoph stricture, small-mod HH(2.5cm), mod gastritis. Procedure & Operative Findings Date of Procedure 04/10/22 Procedure Performed/Findings EGD with bx and balloon dilatation. Anesthesia Type mac Estimated Blood Loss Estimated blood loss (mL): minimal Specimens/Packing Specimens Removed ge jxn, antrum LASHON JOHNSON MD Apr 10, 2022 14:51
[2022-04-10 14:55] VITALS: BP 118/53
[2022-04-10 15:08] VITALS: BP 118/53
--- NOTE | 2022-04-10 22:25 | OPERATIVE REPORT ---
DATE OF SERVICE: 04/10/2022 ATTENDING PRIMARY CARE PHYSICIAN: Milton Blount MD PREOPERATIVE DIAGNOSES: Gastroesophageal reflux disease and dysphagia. POSTOPERATIVE DIAGNOSES: Reflux esophagitis, [place] grade B with a mild distal esophageal stricture, small to moderate size hiatal hernia approximately 2-2.5 cm in size. Moderate gastritis, no distal obstructions. PROCEDURE: EGD with biopsy and balloon dilatation. SURGEON: Lashon Johnson MD ANESTHESIA: Monitored anesthesia care. ESTIMATED BLOOD LOSS: Minimal. FINDINGS: Reflux esophagitis, [place] grade B with a mild distal esophageal stricture, small to moderate size hiatal hernia approximately 2-2.5 cm in size. Moderate gastritis, no distal obstructions. DISPOSITION: The patient tolerated the procedure well. INDICATIONS: The patient is a 66-year-old female known to us. We had initially seen her in 07/2019 for epigastric pressure sensation as well as reflux and regurgitation. She underwent an EGD on 09/01/2019 and found to have reflux esophagitis, a small hiatal hernia and moderate gastritis. She was then medically treated. For the past several months, she has had increasing episodes of epigastric pressure sensation after food bolus as well as regurgitation. She was currently on a PPI acid clay products glazer; however, she was seen by her primary care physician and instructed to take this twice a day. She does have risk factors including smoking history. DESCRIPTION OF PROCEDURE: The patient was brought to the endoscopy suite and laid in the left lateral decubitus position. After adequate IV pain and sedative medications and monitored anesthesia care, the mouthpiece was applied. The endoscope was then placed in the mouth, visualized the pharynx and hypopharyngeal region. Vocal cords, epiglottis and vallecula identified and appeared to be normal. The endoscope was then gently intubated in the esophageal opening and esophagus insufflated. The endoscope was then advanced through the valves of [place] of the rectum with no polyps or any neoplasms identified. We then proceeded to the first, second and third portion of esophagus at the level of the GE junction, reflux esophagitis, [place] grade B identified as well as a mild distal esophageal stricture. A biopsy was taken with forceps with visualization of good hemostasis. The endoscope was then advanced into the stomach and endoscope retroflexed visualizing a small to moderate size hiatal hernia approximately 2.5 cm in size. A moderate gastritis was noted. No formal ulcerations, polyps or any neoplasms and a biopsy was taken with forceps to rule out H. pylori with visualization of good hemostasis. The endoscope was then advanced to the pylorus and the first and second portion of the duodenum, which appeared normal with no distal obstructions. The balloon was then placed into the stomach and pulled back to the area of the stricture. We then proceeded with a dilatation in a graded stepwise fashion from 2-4, then eventually 6 atmospheres of pressure for 20 mm in luminal diameter with moderate resistance and left this in place for 60 seconds. The balloon was then desufflated and removed with visualization of good hemostasis as well as no mucosal tears. The endoscope was then slowly withdrawn while taking a second look and suctioning of residual air with no additional findings. The patient tolerated the procedure well. We will have her to continue medical management for her reflux including smoking cessation as well as small and more frequent meals, avoidance of eating at night as well as head elevation while lying supine. She also needs to avoid caffeinated beverages, spicy, greasy and acidic foods. We will also recommend that she continue to take her PPI, acid clay products glazer on a b.i.d. basis. If she is compliant with medical management; however, continues to have problems with reflux and heartburn, she may be a candidate for hiatal hernia repair; however, we would proceed with an esophageal manometry study first to rule out an esophageal motility disorder before proceeding with hiatal hernia repair. Job ID: [id number] DocumentID: [id number] Dictated Date: 04/10/2022 14:40:18 Refuse And Recycling Worker Date: 04/10/2022 22:24:00 Dictated By: LASHON JOHNSON MD
== END | disposition home or self-care (01) ==
LOC: ENDO 11:02
PROVIDERS: ATTEND Surgery
DX: K21.00 Gastro-esophageal reflux disease with esophagitis, without bleeding (principal); K22.2 Esophageal obstruction; K44.9 Diaphragmatic hernia without obstruction or gangrene; K31.89 Other diseases of stomach and duodenum; K29.70 Gastritis, unspecified, without bleeding; F17.210 Nicotine dependence, cigarettes, uncomplicated; Z79.899 Other long term (current) drug therapy

== ENCOUNTER → 2022-05-08 | Outpatient (CLI) | payer MEDICARE, OTHER ==
[~2022-05-08] MED LIST changes: -HURRICAINE EXT TUBE (BENZOCAINE) XX PRN; -LACTATED RINGERS 1,000 ML IV STA; -LIDOCAINE JELLY 2% 6 ML SYRINGE MM PRN; -LIDOCAINE JELLY 2% 6 ML SYRINGE ONE; -MIDAZOLAM 2 MG/2 ML (VERSED) VIAL ONE; -ONDANSETRON 4 MG (ZOFRAN) ORAL DISSOLVE TAB PO PRN; -ONDANSETRON 4 MG/2 ML (SDV) Z0FRAN IVP PRN; -proPOfol 200 MG/20 ML (DIPRIVAN) VIAL IV ONE
[2022-05-08 14:12] LABS: ABSOLUTE RETIC # 62 10e9/uL (24-90); BASOPHILS # (AUTO) 0.1 10^3/uL (0.0-0.1); BASOPHILS % (AUTO) 1 % (0-10); EOSINOPHILS # (AUTO) 0.2 10^3/uL (0.0-0.3); EOSINOPHILS % (AUTO) 2 % (0-10); HEMATOCRIT 47 % (35-52); HEMOGLOBIN 15.5 g/dL (11.5-16.0); LYMPHOCYTES # (AUTO) 5.8 10^3/uL (1.0-4.0); LYMPHOCYTES % (AUTO) 50 % (12-44); MEAN CORPUSCULAR HEMOGLOBIN 28 pg (25-34); MEAN CORPUSCULAR HGB CONC 33 g/dL (32-36); MEAN CORPUSCULAR VOLUME 85 fL (80-99); MEAN PLATELET VOLUME 10.4 fL (9.0-12.2); MONOCYTES # (AUTO) 0.9 10^3/uL (0.0-1.0); MONOCYTES % (AUTO) 8 % (0-12); NEUTROPHILS # (AUTO) 4.6 10^3/uL (1.8-7.8); NEUTROPHILS % (AUTO) 39 % (42-75); PLATELET COUNT 342 10^3/uL (130-400); RETICULOCYTE % 1.13 % (0.50-2.40); WHITE BLOOD COUNT 11.6 10^3/uL (4.3-11.0)
[2022-05-08 14:37] LABS: EOSINOPHILS % (MANUAL) 1 %; LYMPHOCYTES % (MANUAL) 28 %; MONOCYTES % (MANUAL) 11 %; NEUTROPHILS % (MANUAL) 41 %; REACTIVE LYMPHOCYTES 19 %
== END ==
LOC: LAB 13:40
PROVIDERS: ATTEND Nurse Practitioner Family
DX: D72.829 Elevated white blood cell count, unspecified (principal)
CPT/HCPCS: 36415; 85007; 85027; 85045; 85055

== ENCOUNTER → 2022-05-20 | Outpatient (CLI) | payer MEDICARE, OTHER ==
--- NOTE | 2022-05-20 09:47 | Diagnostic Imaging Report ---
INDICATION: Routine screening. Comparison is made with prior mammogram from 05/17/2021 and 03/22/2019. 2-D and 3-D bilateral screening mammography was performed with CAD. CAD is utilized. The current study was also evaluated with a Computer Aided Detection (CAD) system. Scattered fibroglandular densities are identified bilaterally. Intraparenchymal lymph node outer right breast is again noted. No spiculated mass or malignant-appearing microcalcifications are seen. Axillae are unremarkable. IMPRESSION: BI-RADS Category 1 No mammographic features suspicious for malignancy are identified. ACR BI-RADS Category 1: Negative. Result letter will be mailed to the patient. Note: At least 10% of breast cancer is not imaged by mammography. Dictated by: Dictated on workstation # [id number]
== END ==
LOC: RAD 07:33
PROVIDERS: ATTEND Nurse Practitioner Family
DX: Z12.31 Encounter for screening mammogram for malignant neoplasm of breast (principal)
CPT/HCPCS: 77063; 77067

== ENCOUNTER 2022-07-10 10:45 | Outpatient (CLI) | payer MEDICARE, OTHER ==
[~2022-07-10] VITALS: Ht 157.4 cm; Wt 76.8 kg
[2022-07-10] MEDS ORDERED: MIRT-68 PO (13:15)
[2022-07-10] MEDS ORDERED: GABA300C PO (13:47)
[2022-07-11] MEDS ORDERED: ACHD5005 PO (11:06)
== END 2022-07-10 14:06 | disposition home or self-care (01) ==
LOC: PREOP 10:45
PROVIDERS: ATTEND Surgery
DX: Z01.818 Encounter for other preprocedural examination (principal)

== ENCOUNTER 2022-07-11 10:48 | Day surgery (SDC) | payer MEDICARE, OTHER ==
[~2022-07-11] VITALS: Ht 157.4 cm; Wt 76.8 kg
[~2022-07-11 10:48] MED LIST changes: +GABA300C PO; +MIRT-68 PO
--- NOTE | 2022-07-11 11:04 | Progress Note-Pre Operative ---
Pre-Operative Progress Note Date H&P Reviewed: July 11, 2022 Time H&P Reviewed: 11:03 History & Physical: H&P Reviewed, Patient Examed, No changes noted Pre-Operative Diagnosis: Poor Venous Access, Rheumatoid Arthritis MARLENA PRITCHETT APRN July 11, 2022 11:04
[2022-07-11] MEDS ORDERED: ACHD5005 PO (11:06)
--- NOTE | 2022-07-11 11:06 | Discharge Inst-Surgical ---
D/C Lap Instructions-KIDO Reconcile Patient Problems Problems Reviewed?: Yes New, Converted, or Re-Newed RX: RX on Chart Follow Up Appt in 2 weeks Activity as tolerated No driving for 24 hours No driving while on pain medications Regular Diet Symptoms to Report: Fever over 101 degree F, Nausea/Vomiting Infection Signs and Symptoms to report: Increased redness, Foul odor of wound, Increased drainage Bathing instructions: May shower Operative Area Clean/Dry; Keep incision clean/dry If any problems/questions: Contact your physician or go to Emergency Room MARLENA PRITCHETT APRN July 11, 2022 11:06
[2022-07-11] MEDS ORDERED: morphine INJ 10 MG/ML 1ML (SYR OR VIAL) IVP PRN (11:15)
[2022-07-11] MEDS ORDERED: ACETAMINOPHEN 325 MG TABLET PO PRN (11:15)
[2022-07-11] MEDS ORDERED: HYDROcodone/APAP 5 MG/325 MG (LORTAB) TAB PO ONE (11:15)
[2022-07-11] MEDS ORDERED: ONDANSETRON 4 MG/2 ML (SDV) Z0FRAN IVP PRN ×2 (11:15→13:45)
[2022-07-11] MEDS ORDERED: CLINDAMYCIN 600 MG/50 ML IVPB 50 ML IV ONE ×2 (11:15→11:19)
[2022-07-11] MEDS ORDERED: LACTATED RINGERS 1,000 ML IV PRN (11:30)
[2022-07-11 11:36] VITALS: BP 124/85
[2022-07-11] MEDS ORDERED: 0.9% SODIUM CHLORIDE PF INJ 20 ML VIAL ONE (11:40)
[2022-07-11] MEDS ORDERED: HEParin (CENTRAL IV FLUSH) 500 UNIT/5 ML SYR ONE (11:41)
[2022-07-11] MEDS ORDERED: LIDOCAINE/EPI 1%-1:100,000 (XYLOCAINE) 20ML ONE (11:41)
[2022-07-11] MEDS ORDERED: PROPOFOL INJECTION 50 ML IV ONE (12:27)
[2022-07-11] MEDS ORDERED: MIDAZOLAM 2 MG/2 ML (VERSED) VIAL ONE (12:27)
[2022-07-11] MEDS ORDERED: HEParin (CENTRAL IV FLUSH) 500 UNIT/5 ML SYR IV ONE (13:13)
[2022-07-11] MEDS ORDERED: LIDOCAINE/EPI 1%-1:100,000 (XYLOCAINE) 20ML INJ ONE (13:16)
[2022-07-11] MEDS ORDERED: 0.9% SODIUM CHLORIDE PF INJ 20 ML VIAL IV ONE (13:18)
--- NOTE | 2022-07-11 13:21 | Progress Note-Post Operative ---
Post-Operative Progess Note Surgeon (s)/Seismology Teacher (s) Surgeon LASHON JOHNSON MD Seismology Teacher: kristan barlow CAN BANDER OPERATOR Pre-Operative Diagnosis Poor Venous Access, Rheumatoid Arthritis Post-Operative Diagnosis same Procedure & Operative Findings Date of Procedure 07/11/22 Procedure Performed/Findings left subclavian groshong implantable catheter under flouroscopy. Anesthesia Type mac with local Estimated Blood Loss Estimated blood loss (mL): minimal Specimens/Packing Specimens Removed none LASHON JOHNSON MD July 11, 2022 13:21
[2022-07-11 13:29] VITALS: BP 92/50
--- NOTE | 2022-07-11 13:33 | Anesthesia-General Post-Op ---
MAC Patient Condition Mental Status/LOC: Same as Preop Cardiovascular: Satisfactory Nausea/Vomiting: Absent Respiratory: Satisfactory Pain: Controlled Complications: Absent Post Op Complications Complications None Follow Up Care/Instructions Patient Instructions None needed. Anesthesiology Discharge Order Discharge Order Patient is doing well, no complaints, stable vital signs, no apparent adverse anesthesia problems. No complications reported per nursing. DALILA JANSEN CRNA July 11, 2022 13:33
[2022-07-11 13:35] VITALS: BP 102/50
[2022-07-11 13:45] VITALS: BP 102/66
[2022-07-11] MEDS ORDERED: morphine INJ 10 MG/ML 1ML (SYR OR VIAL) IVP ONE (13:45)
--- NOTE | 2022-07-11 13:52 | Diagnostic Imaging Report ---
INDICATION: Port placement evaluation AP view of chest is obtained with comparison made to study of 07/27/2019. Heart size and pulmonary vascularity are within normal limits. There has been placement of left anterior chest wall port with catheter tip projecting over the lower superior vena cava. There are stimulator leads also seen within the mid thoracic spinal region. There is no pneumothorax. No consolidation or pleural fluid is seen. IMPRESSION: No acute abnormality or complication. Dictated by: Dictated on workstation # [id number]
[2022-07-11 13:59] VITALS: BP 112/51
[2022-07-11 14:01] VITALS: BP 102/66
--- NOTE | 2022-07-11 15:39 | Diagnostic Imaging Report ---
INDICATION: Port-A-Cath placement. Intraoperative fluoroscopy view obtained during Port-A-Cath placement. Single view obtained, 6.0 seconds of fluoroscopy time was used. Intraoperative views demonstrate Port-A-Cath with tip overlying the superior portion of the right atrium. The study is otherwise limited. IMPRESSION: Port-A-Cath catheter tip overlies the superior portion of the right atrium. Study is otherwise limited. Dictated by: Dictated on workstation # [id number]
--- NOTE | 2022-07-11 16:33 | OPERATIVE REPORT ---
DATE OF SERVICE: 07/11/2022 ATTENDING PRIMARY CARE PHYSICIAN: Dr. Milton Blount. PREOPERATIVE DIAGNOSIS: Rheumatoid arthritis, poor peripheral venous circulation. POSTOPERATIVE DIAGNOSES: Rheumatoid arthritis, poor peripheral venous circulation. PROCEDURE: Placement left subclavian Groshong implantable catheter under fluoroscopy. SURGEON: Lashon Obrien MD LOGISTICS SOLUTION MANAGER: Clif Car APRN ANESTHESIA: Monitored anesthesia care with local. ESTIMATED BLOOD LOSS: Minimal. FINDINGS: Rheumatoid arthritis, poor peripheral venous circulation. DISPOSITION: The patient tolerated the procedure well. INDICATIONS: The patient is a 67-year-old female known to us. We have treated her for reflux and regurgitation as well as a distal esophageal stricture in the past. She was referred over to us for need of a Groshong implantable catheter. She has a history of rheumatoid arthritis and has been getting infusions every 2 months and every time it has been harder to get an IV access for the infusion as well as for blood draws. She will continue to need these infusions as well as multiple blood draws and will require a Groshong implantable catheter. DESCRIPTION OF PROCEDURE: The patient was brought to the operating room, laid supine on the table. After adequate IV pain and sedative medications and monitored anesthesia care, the chest and neck were prepped and draped in standard surgical fashion. A 1% lidocaine with epinephrine was then used to anesthetize the left subclavian region. The left subclavian vein was then cannulated with drawing of venous blood. The guidewire was then inserted under fluoroscopy. The cannulating needle removed and a skin incision made using a #15 blade. The dilator and sheath were then placed over the guidewire. The guidewire and the dilator were then removed and the Groshong catheter was placed through the sheath until the tip of the catheter was at the superior vena caval -- right atrial junction and then the sheath was then removed. The inner wire within the catheter was then removed. The catheter cut down to size and a port placed onto the catheter. The chest reservoir was then created by extending the skin incision laterally. A plane was then created between the subcutaneous fat and the anterior pectoralis fascia using blunt dissection as well as electrocautery with visualization of good hemostasis. The port was then placed into the reservoir and sutured to the anterior pectoralis fascia using interrupted 3-0 Vicryl sutures. The subcutaneous tissue was then reapproximated with the same suture in an interrupted manner and the skin was closed using 4-0 Monocryl running subcuticular suture. Wound was then cleaned and covered with Dermabond. The catheter was accessed with a non-coring Ordoñez needle and saline and venous blood drawn and heparinized saline pushed in without any resistance. The patient tolerated the procedure well. We will start an IV and oral pain medication as well as a clear liquid diet. Once she meets criteria, she may be discharged home and the port may be accessed and used at any time. Job ID: [id number] DocumentID: [id number] Dictated Date: 07/11/2022 13:27:20 Robotic Welder Date: 07/11/2022 16:32:00 Dictated By: LASHON OBRIEN MD
== END 2022-07-11 14:03 | disposition home or self-care (01) ==
LOC: SDC 10:48
PROVIDERS: ATTEND Surgery
DX: M06.9 Rheumatoid arthritis, unspecified (principal); I87.8 Other specified disorders of veins; F17.210 Nicotine dependence, cigarettes, uncomplicated
CPT/HCPCS: 36561; 71045; 76000; 87081; C1788